=== PATIENT | male | born 1965 | race Caucasian/White ===

== ENCOUNTER → 2017-12-15 | Outpatient (CLI) | payer BC ==
--- NOTE | 2017-12-15 10:58 | NM ---
EXAMINATION TYPE: NM stress cardiolite complete DATE OF EXAM: 12/15/2017 COMPARISON: Nuclear medicine stress test April 13, 2014. HISTORY: History of tobacco use and hypercholesterolemia with family history of heart attack presents with chest pain TECHNIQUE: After the intravenous administration of 10.07 mCi Tc 99m Sestamibi - Rest images obtained 45 minutes post injection. The patient exercised using a BRIA protocol and 1 minute prior to peak exercise was injected with 25.7 mCi Tc 99m Sestamibi - Stress images obtained 10 minutes post inject ion. FINDINGS: Targeted heart rate was achieved during performance of the study. Review of stress and rest SPECT arelis ges demonstrates no distinct perfusion abnormality. Gated analysis shows satisfactory wall motion wi th an estimated left ventricular ejection fraction of 34 % diminished from the normal range. End-ralph tolic volume is 1 54 cc is also elevated from normal range. IMPRESSION: No scintigraphic evidence for reversible ischemia, correlate for possible dilated cardiomyopathy with echo and clinically.
[2017-12-15 11:24] LABS: Basophils % (A) 0 %; Eosinophils # (A) 0.1 k/uL (0-0.7); Eosinophils % (A) 1 %; HCT 47.2 % (39.0-53.0); HGB 15.5 gm/dL (13.0-17.5); Lymphocytes % (A) 26 %; MCH 29.6 pg (25.0-35.0); MCHC 32.9 g/dL (31.0-37.0); MCV 90.2 fL (80.0-100.0); Mean Platelet Volume 7.6; Monocytes # (A) 0.3 k/uL (0-1.0); Monocytes % (A) 4 %; Neutrophils # (A) 5.3 k/uL (1.3-7.7); Neutrophils % (A) 67 %; Platelet Count 237 k/uL (150-450); RBC 5.23 m/uL (4.30-5.90); RDW 12.7 % (11.5-15.5); WBC 7.9 k/uL (3.8-10.6)
[2017-12-15 11:47] LABS: Albumin 4.5 g/dL (3.5-5.0); Calcium 9.8 mg/dL (8.4-10.2); Potassium 4.9 mmol/L (3.5-5.1); Total Bilirubin 0.6 mg/dL (0.2-1.3); Total Protein 7.5 g/dL (6.3-8.2)
[2017-12-15 11:58] LABS: T4, Free (Free Thyroxine) 0.83 ng/dL (0.78-2.19)
[2017-12-15 12:12] LABS: Prostate Specific Antigen 1.64 ng/mL (0.00-4.00)
--- NOTE | 2017-12-15 12:31 | ECHOF ---
Referral Reason:R07.9 MEASUREMENTS -------- HEIGHT: 177.8 cm WEIGHT: 81.6 kg BP: RVIDd: 2.8 cm (< 3.3) IVSd: 1.2 cm (0.6 - 1.1) LVIDd: 5.8 cm (3.9 - 5.3) LVPWd: 1.2 cm (0.6 - 1.1) IVSs: 1.5 cm LVIDs: 4.6 cm LVPWs: 1.5 cm LAESV Index (A-L): 35.78 ml/m Ao Diam: 3.0 cm (2.0 - 3.7) AV Cusp: 2.1 cm (1.5 - 2.6) LA Diam: 3.2 cm (2.7 - 3.8) EPSS: 0.6 cm MV E Cody: 0.38 m/s MV DecT: 334 ms MV A Cody: 0.66 m/s MV E/A Ratio: 0.57 RAP: 5.00 mmHg RVSP: 22.02 mmHg MV EF SLOPE: 172.15 mm/s (70 - 150) MV EXCURSION: 2.27 cm (> 18.000) FINDINGS -------- Sinus rhythm. Frequent ventricular premature beats. This was a technically good study. The left ventricular size is normal. There is mild concentric left ventricular hypertrophy. Overa ll left ventricular systolic function is moderate-severely impaired with, an EF between 30 - 35 %. Lateral hypokinesis Anterior is hypokinetic The right ventricle is normal in size and function. LA is moderately dilated 34-39 ml/m2 RA appears enlarged. Aortic valve is trileaflet and is mildly thickened. Trace amount of aortic regurgitation. There is no evidence of aortic stenosis. The mitral valve leaflets are mildly thickened. There is trace to mild mitral regurgitation. Trace tricuspid regurgitation present. Right ventricular systolic pressure is normal at < 35 mmHg. There is no evidence of pulmonary hypertension. Trace/mild (physiologic) pulmonic regurgitation. The aortic root size is normal. Normal inferior vena cava with normal inspiratory collapse consistent with estimated right atrial pre ssure of 5 mmHg. There is no pericardial effusion. CONCLUSIONS -------- 1. Sinus rhythm. 2. Frequent ventricular premature beats. 3. This was a technically good study. 4. The left ventricular size is normal. 5. There is mild concentric left ventricular hypertrophy. 6. Overall left ventricular systolic function is moderate-severely impaired with, an EF between 30 - 35 %. 7. Lateral hypokinesis 8. Anterior is hypokinetic 9. LA is moderately dilated 34-39 ml/m2 10. RA appears enlarged. 11. Aortic valve is trileaflet and is mildly thickened. 12. Trace amount of aortic regurgitation. 13. The mitral valve leaflets are mildly thickened. 14. There is trace to mild mitral regurgitation. 15. Trace tricuspid regurgitation present. 16. Right ventricular systolic pressure is normal at < 35 mmHg. 17. There is no evidence of pulmonary hypertension. 18. Trace/mild (physiologic) pulmonic regurgitation. 19. The aortic root size is normal. 20. There is no pericardial effusion. FURNACE FITTER: Tarik Randle RDCS
--- NOTE | 2017-12-15 13:00 | EST ---
EXERCISE STRESS DATE OF SERVICE: 12/15/2017 AGE: 52 SEX: Male HT: 5'10" WT: 180 pounds PROTOCOL: Cardiolite Ashu STAGE: IV DURATION OF EXERCISE: 12 minutes HEART RATE REST: 82 BLOOD PRESSURE REST: 145/107 MAXIMUM HEART RATE ACHIEVED: 141 MAXIMUM BLOOD PRESSURE: 208/102 85% MPHR: 143 100% MPHR: 168 METS: 12.3 INDICATIONS: Chest pain. CLINICAL INFORMATION: Baseline EKG revealed normal sinus rhythm with voltage criteria for LVH and minor nonspecific inferolateral ST abnormality. Patient walked on standard Ashu protocol for 12 minutes, achieved a maximal heart rate of 140 beats per minute which is almost 85% of predicted maximal. Resting heart rate was 82 beats per minute. Resting blood pressure was 145/107. Peak blood pressure was 208/102. Patient therefore had hypertensive response to exercise, had isolated ventricular ectopy during exercise, but did not have any subjective symptoms of angina. He also had some ventricular couplets as well. By EKG criteria, this is considered as an inconclusive stress test given his resting EKG abnormalities. However, there were isolated PVCs and patient had hypertensive response to exercise. The quality of EKG tracings were suboptimal. FINAL IMPRESSION: 1. Good exercise capacity. 2. By EKG criteria, this is a technically inconclusive stress test because of resting EKG changes. 3. Patient had frequent ventricular ectopy including ventricular couplets and triplets in the recovery period. There were no subjective symptoms of angina. The nuclear scan results which are more pertinent, will be reported by the radiologist. However, if clinically indicated he will benefit from coronary angiography given this abnormal stress test. The findings on the stress test were discussed with Dr. Collin Doan. MMTAIL / REBECCAN: [id number] /
== END | disposition home or self-care (01) ==
LOC: RADNMMAIN 08:02
PROVIDERS: ATTEND Family Medicine
DX: I49.3 Ventricular premature depolarization (principal); Z00.00 Encounter for general adult medical examination without abnormal findings; I10 Essential (primary) hypertension; Z88.2 Allergy status to sulfonamides; Z88.5 Allergy status to narcotic agent
CPT/HCPCS: 93017; 93306; 84439; 84153; 80061; 80053; 84443; 85025; 78452; 36415; A9500

== ENCOUNTER 2018-01-07 07:59 | Day surgery (SDC) | payer BC ==
[2018-01-01 09:31] VITALS: BMI 25.8
[~2018-01-07 07:59] MED LIST: ALPRAZolam 0.25 MG TAB PO PRN; ALPRAZolam 0.5 MG TAB PO PRN; ASPIRIN 325 MG TAB PO ONE; ATORVASTATIN 80 MG TAB PO ONE; NITROGLYCERIN SL TABS 0.4 MG TAB SUBLINGUAL PRN; SODIUM CHLORIDE 0.9% 1,000 ML in EMPTY BAG 1 BAG IV ONE
[2018-01-07 08:29] VITALS: PULSE 67; RESP 20; TEMP 98
[2018-01-07] MEDS ORDERED: MIDAZOLAM 2 MG/2 ML VIAL ONE (09:21)
[2018-01-07] MEDS ORDERED: fentaNYL (PF) 50 MCG/ML 2 ML AMP ONE (09:21)
[2018-01-07] MEDS ORDERED: fentaNYL (PF) 50 MCG/ML 2 ML AMP IV ONE (09:32)
[2018-01-07] MEDS ORDERED: MIDAZOLAM 2 MG/2 ML VIAL IVP ONE (09:32)
[2018-01-07] MEDS ORDERED: LIDOCAINE 1% INJ 10MG/ML (20 ML MDV) SQ ONE (09:34)
[2018-01-07] MEDS ORDERED: IOPAMIDOL-370 125ML BTL INJ ONE (09:52)
[2018-01-07] MEDS ORDERED: RX INFO: IV CONTRAST WAS GIVEN 1 EACH MISC MISCELLANE PRN (10:05)
[2018-01-07] MEDS ORDERED: SODIUM CHLORIDE 0.9% 1,000 ML IV SCH (10:15)
--- NOTE | 2018-01-07 14:30 | CC ---
CARDIAC CATHETERIZATION REPORT INDICATION: Cardiomyopathy. PROCEDURE NOTE: After obtaining informed consent, left heart catheterization and coronary angiogram were performed via the right femoral artery using Bang catheters. The patient tolerated the procedure well without any obvious immediate complications. A femoral angiogram was performed and Angio-Seal was deployed for hemostasis. FINDINGS: HEMODYNAMICS: Left ventricular end-diastolic pressure is 12 to 14 mm. There is no significant gradient across the aortic valve. LEFT VENTRICULOGRAM: Left ventriculogram is not performed. ANGIOGRAPHIC DATA: LEFT MAIN CORONARY ARTERY: Left main coronary artery appears calcified but is free of significant stenosis. Divides into left anterior descending coronary artery and circumflex coronary artery. LAD shows mild to moderate atherosclerotic plaque in its proximal portion. Circumflex coronary artery shows mild nonobstructive disease in the proximal part. Right coronary artery is a large dominant vessel that shows moderate area of atherosclerotic plaque in its proximal portion. CONCLUSION: 1. Mild to moderate nonobstructive coronary artery disease. 2. Possible nonischemic cardiomyopathy. Patient tolerated the procedure well. Had catheter-induced left bundle branch block, which also seems rate dependent. Patient is hemodynamically stable and is free of symptoms, otherwise. Patient is stable hemodynamically. He received moderate conscious sedation for the procedure and total sedation time was 15 minutes. MMODL / IJN: [id number] /
[2018-01-07 15:12] VITALS: BP 142/83
== END 2018-01-07 15:27 | disposition home or self-care (01) ==
LOC: CATHCVL 07:59
PROVIDERS: ATTEND Internal Medicine Cardiovascular Disease
DX: I25.10 Atherosclerotic heart disease of native coronary artery without angina pectoris (principal); I44.7 Left bundle-branch block, unspecified; I42.9 Cardiomyopathy, unspecified; E78.2 Mixed hyperlipidemia; I10 Essential (primary) hypertension; F17.210 Nicotine dependence, cigarettes, uncomplicated; Z79.82 Long term (current) use of aspirin; Z79.899 Other long term (current) drug therapy; Z82.49 Family history of ischemic heart disease and other diseases of the circulatory system; Z88.5 Allergy status to narcotic agent; Z88.2 Allergy status to sulfonamides
CPT/HCPCS: 93458; C1760; C1894; C1769; J2250; J2001; J3010; Q9967

== ENCOUNTER 2018-11-09 11:15 | Observation (INO) | payer BC ==
--- NOTE | 2018-11-09 11:53 | ED ---
Chest Pain HPI - General Chief Complaint: Chest Pain Stated Complaint: lt shoulder pain, SOB Time Seen by Provider: 11/09/18 11:27 Source: patient, RN notes reviewed, old records reviewed Mode of arrival: wheelchair Limitations: no limitations - History of Present Illness Initial Comments: This is a 52-year-old male the ER for evaluation presents today for evaluation of chest pain patient states he has history of CVA unknown, did not have any evaluation at that time was just told us about 11 months ago. He has had heart catheterization in the past. Patient has high blood pressure high cholesterol is a smoker. So chest pain dizziness lightheadedness earlier in the day that is persistent. Patient also complaining of current chest pain. No recent travel history no sick contacts no fever cough or congestion MD Complaint: chest pain -: hour(s) Onset: during rest, during exertion Pain Location: left chest Pain Radiation: none Severity: moderate Severity scale (1-10): 4 Quality: tightness, heaviness Consistency: constant Improves With: nothing Worsens With: nothing Anginal Symptoms: diaphoresis, dyspnea Treatments Prior to Arrival: none - Related Data Home Medications Medication Instructions Recorded Confirmed Atorvastatin Calcium [Lipitor] 20 mg PO DAILY 01/01/18 11/09/18 Lisinopril [Zestril] 2.5 mg PO DAILY 01/01/18 11/09/18 Metoprolol Tartrate [Lopressor] 50 mg PO DAILY 01/01/18 11/09/18 Aspirin EC [Ecotrin Low Dose] 81 mg PO DAILY 11/09/18 11/09/18 Allergies Allergy/AdvReac Type Severity Reaction Status Date / Time codeine Allergy PINS AND Verified 11/09/18 11:26 NEEDLES FEELING Review of Systems ROS Statement: Those systems with pertinent positive or pertinent negative responses have been documented in the HPI. ROS Other: All systems not noted in ROS Statement are negative. EKG Findings - EKG Comments: EKG Findings:: EKG shows sinus bradycardia rate 53 NC 148 QRS 102 QTc 437 Past Medical History Past Medical History: Coronary Artery Disease (CAD), Hyperlipidemia, Hypertension, Myocardial Infarction ([place]) History of Any Multi-Drug Resistant Organisms: None Reported Past Surgical History: Hernia Repair, Orthopedic Surgery, Tonsillectomy Additional Past Surgical History / Comment(s): BILAT KNEE SCOPES. VASECTOMY. RT ROTATOR CUFF REPAIR Past Anesthesia/Blood Transfusion Reactions: No Reported Reaction Past Psychological History: No Psychological Hx Reported Smoking Status: Current every day smoker Past Alcohol Use History: Occasional Past Drug Use History: Marijuana - Past Family History Mother Family Medical History: Deep Vein Thrombosis (DVT) General Exam Limitations: no limitations Course Vital Signs 11/09/18 11:17 Temperature 97.3 F L Pulse Rate 52 L Respiratory 18 Rate Blood Pressure 149/87 O2 Sat by Pulse 98 Oximetry - Reevaluation(s) Reevaluation #1: 11/09/18 13:57 Medical records reviewed including prior heart catheterization Reevaluation #2: 11/09/18 13:57 Patient still remains a chest pain but notes chest pain like he had earlier no diaphoresis or shortness of breath currently. Complaining of more shoulder pain and back pain now Chest Pain MDM - MDM 50 female the ER for evaluation history of CAD high blood pressure high cholesterol and smoking only in with left-sided pain. Diaphoresis. Patient also had episode of shortness of breath. Symptoms are persistent but mainly just left lower pain now. We'll admit for cardiac observation Critical Care Time Critical Care Time: Yes Total Critical Care Time: 31 Disposition Clinical Impression: Chest pain Disposition: ADMITTED IP TO THIS HOSP Condition: Undetermined Instructions (If sedation given, give patient instructions): Chest Pain (ED) Is patient prescribed a controlled substance at d/c from ED?: No Referrals: Pavel Fraga MD [Primary Care Provider] - 1-2 days
--- NOTE | 2018-11-09 12:27 | XR ---
EXAMINATION TYPE: XR chest 2V DATE OF EXAM: 11/09/2018 COMPARISON: 06/17/2014 HISTORY: 53-year-old male with chest pain TECHNIQUE: PA and lateral views FINDINGS: Heart upper limits of normal in size. Mild elongation thoracic aorta. Normal variant azygos fissure. No consolidation or pleural effusion. IMPRESSION: Borderline heart size. No acute process seen.
[2018-11-09 12:33] LABS: Basophils # (A) 0.1 k/uL (0-0.2); Basophils % (A) 1 %; Eosinophils # (A) 0.2 k/uL (0-0.7); Eosinophils % (A) 2 %; HGB 14.7 gm/dL (13.0-17.5); Lymphocytes # (A) 2.2 k/uL (1.0-4.8); Lymphocytes % (A) 28 %; MCH 30.1 pg (25.0-35.0); MCHC 33.5 g/dL (31.0-37.0); MCV 89.8 fL (80.0-100.0); Mean Platelet Volume 8.4; Monocytes # (A) 0.3 k/uL (0-1.0); Monocytes % (A) 4 %; Neutrophils % (A) 63 %; Platelet Count 230 k/uL (150-450); RDW 14.1 % (11.5-15.5)
[2018-11-09 12:43] LABS: Partial Thromboplastin Time 23.2 sec (22.0-30.0); Prothrombin Time 10.3 sec (9.0-12.0)
[2018-11-09 12:46] LABS: Albumin 4.8 g/dL (3.5-5.0); Magnesium 1.8 mg/dL (1.6-2.3); Potassium 4.7 mmol/L (3.5-5.1); Total Bilirubin 0.6 mg/dL (0.2-1.3); Total Protein 7.9 g/dL (6.3-8.2)
[2018-11-09] MEDS ORDERED: ASPIRIN 81 MG PO STA (13:55)
[2018-11-09] MEDS ORDERED: NITROGLYCERIN SL TABS 0.4 MG TAB SUBLINGUAL PRN (13:55)
[2018-11-09] MEDS ORDERED: HEPARIN SODIUM,PORCINE 5,000 UNIT/ML 1 ML VIAL IV ONE (13:55)
[2018-11-09] MEDS ORDERED: HEPARIN SODIUM,PORCINE 5,000 UNIT/ML 1 ML VIAL IV PRN (13:55)
[2018-11-09] MEDS: SODIUM CHLORIDE 0.9% 1,000 ML IV SCH ×2 (14:23→23:27)
[2018-11-09] MEDS: HEPARIN SOD,PORK IN 0.45% NACL 25,000 UNIT in 0.45% NACL 1 250ML.BAG IV SCH (14:24)
--- NOTE | 2018-11-09 14:31 | CT ---
EXAMINATION TYPE: CT angio chest DATE OF EXAM: 11/09/2018 COMPARISON: Radiograph same day HISTORY: 53-year-old male Left sided shoulder pain with shortness of breath. TECHNIQUE: Contiguous axial scanning of the chest performed with IV Contrast, patient injected with 1 00 mL of Isovue 370. Coronal/sagittal reconstructions performed. CT DLP: 408.4 mGycm Automated exposure control for dose reduction was used. FINDINGS: Heart normal size without pericardial effusion. Coronary vessel calcifications are present. Aorta normal caliber with variant direct takeoff of the left vertebral artery directly from the aorti c arch. Satisfactory opacification of the pulmonary arterial system without evidence for pulmonary embolus. A few calcified right hilar lymph nodes compatible with prior granulomatous disease. No thoracic lymp hadenopathy by CT size criteria. Trace bilateral gynecomastia. Mild diffuse bronchial wall thickening. 6.6 cm bulla right apex. Mild underlying emphysema. Tiny calc ified 3 mm smaller pulmonary nodules/calcified granulomas anterior right upper lobe. The larger 4 mm right upper lobe pulmonary nodule, axial image 39 which should be reassessed at follo w-up. Bilateral dependent atelectasis. No consolidation or pleural effusion. Visualized upper abdomen shows mild thickening of the left adrenal gland without discrete nodularity. Numerous calcified granulomas within the spleen. Bones: Mild multilevel degenerative disc disease. No osseous destructive process. IMPRESSION: 1. NO PULMONARY EMBOLUS. 2. CAD AND PRIOR GRANULOMATOUS DISEASE. 3. COPD WITH MILD EMPHYSEMA BUT WITH A RIGHT APICAL BULLA MEASURING 6.6 CM. 4. SIX-MONTH FOLLOW-UP RECOMMENDED FOR A 4 MM RIGHT UPPER LOBE PULMONARY NODULE.
[2018-11-10 05:45] LABS: Mean Platelet Volume 8.3; Platelet Count 170 k/uL (150-450)
--- NOTE | 2018-11-10 07:57 | P.CRDCN ---
History of Present Illness Consult date: 11/10/18 Chief complaint: Presyncope History of present illness: This is a pleasant 53-year-old gentleman who sees Dr. Duenas in the office on regular basis with a past medical history significant for mild to moderate nonobstructive coronary artery disease based on heart catheterization was performed in January 2018, history of cardiomyopathy, hypertension, dyslipidemia, presented to the hospital after he had an episode of presyncope. He was in his usual state of health until yesterday when he was at home trying to move chair and suddenly he felt dizzy and lightheaded and about to lose his consciousness. He did not have clear-cut syncope. Did not have any symptoms of chest pain or chest discomfort or any feeling of heart racing or fluttering. Because of that he decided to come to the emergency room. In the ER and during his hospital stay, the patient has been bradycardic with a resting heart rate in the 40s and 50s. He is on metoprolol at home. The EKG showed sinus bradycardia with nonspecific changes. The cardiac enzymes were checked and came in to be unremarkable. The patient underwent a heart catheterization in January 2018 and that revealed mild to moderate nonobstructive coronary artery disease. Currently he is chest pain-free. At this point, I would decrease the dose of metoprolol, continue monitor the heart rate for additional 24 hours, obtain TSH and echocardiogram, and possible discharge in next 24 hours Past Medical History Past Medical History: Coronary Artery Disease (CAD), Hyperlipidemia, Hypertension, Myocardial Infarction ([place]) Last Myocardial Infarction Date:: 01/2018 History of Any Multi-Drug Resistant Organisms: None Reported Past Surgical History: Heart Catheterization, Hernia Repair, Orthopedic Surgery, Tonsillectomy Additional Past Surgical History / Comment(s): BILAT KNEE SCOPES. VASECTOMY. RT ROTATOR CUFF REPAIR Past Anesthesia/Blood Transfusion Reactions: No Reported Reaction Past Psychological History: No Psychological Hx Reported Smoking Status: Current every day smoker Past Alcohol Use History: Occasional Additional Past Alcohol Use History / Comment(s): SMOKES <1 PPD-SINCE 1982 Past Drug Use History: Marijuana - Past Family History Mother Family Medical History: Deep Vein Thrombosis (DVT) Medications and Allergies Home Medications Medication Instructions Recorded Confirmed Type Atorvastatin Calcium [Lipitor] 20 mg PO DAILY 01/01/18 11/09/18 History Lisinopril [Zestril] 2.5 mg PO DAILY 01/01/18 11/09/18 History Metoprolol Tartrate [Lopressor] 50 mg PO DAILY 01/01/18 11/09/18 History Aspirin EC [Ecotrin Low Dose] 81 mg PO DAILY 11/09/18 11/09/18 History Allergies Allergy/AdvReac Type Severity Reaction Status Date / Time codeine Allergy PINS AND Verified 11/09/18 11:26 NEEDLES FEELING Physical Exam Vitals: Vital Signs Temp Pulse Pulse Resp BP BP BP 11/10/18 07:00 98.1 F 61 18 139/83 11/10/18 04:00 97.6 F 48 L 18 116/63 11/09/18 23:41 98.0 F 54 L 18 122/78 11/09/18 20:00 98.1 F 55 L 18 115/62 11/09/18 15:31 97.8 F 54 L 17 162/87 11/09/18 14:30 97.6 F 53 L 14 126/85 11/09/18 14:00 47 L 16 141/91 11/09/18 13:30 52 L 14 129/88 11/09/18 13:00 50 L 16 120/83 11/09/18 12:30 51 L 15 122/80 11/09/18 12:00 14 142/89 11/09/18 11:31 49 L 11/09/18 11:17 97.3 F L 52 L 18 149/87 Pulse Ox 11/10/18 07:00 96 11/10/18 04:00 96 11/09/18 23:41 96 11/09/18 20:00 97 11/09/18 15:31 100 11/09/18 14:30 11/09/18 14:00 98 11/09/18 13:30 97 11/09/18 13:00 96 11/09/18 12:30 93 L 11/09/18 12:00 95 11/09/18 11:31 11/09/18 11:17 98 Intake and Output 11/09/18 11/10/18 11/10/18 22:59 06:59 14:59 Intake Total 1289.645 Balance 1289.645 Intake: Intake, IV Titration 1289.645 Amount Heparin Sod,Pork in 0.45% 89.645 NaCl 25,000 unit In 0.45 % NaCl 1 250ml.bag @ 11 UNITS/KG/HR 9.979 mls/hr IV .Q24H STE[facility]IE Rx#: [id number] Sodium Chloride 0.9% 1, 1200 000 ml @ 100 mls/hr IV . Q10H [facility] Rx#:[id number] Other: Voiding Method Toilet Toilet # Voids 1 - Constitutional General appearance: no acute distress - Respiratory Respiratory: bilateral: CTA - Cardiovascular Rhythm: regular Heart sounds: normal: S1, S2 Results 11/10/18 05:23 11/09/18 11:36 Cardiac Enzymes 11/09/18 11/09/18 11/09/18 Range/Units 11:36 11:36 17:27 AST 27 (17-59) U/L Troponin I <0.012 <0.012 (0.000-0.034) ng/mL 11/09/18 Range/Units 23:20 AST (17-59) U/L Troponin I <0.012 (0.000-0.034) ng/mL Coagulation 11/09/18 11/09/18 11/10/18 Range/Units 11:36 21:35 05:23 PT 10.3 (9.0-12.0) sec APTT 23.2 32.1 H 52.6 H (22.0-30.0) sec CBC 11/09/18 11/10/18 Range/Units 11:36 05:23 WBC 8.0 (3.8-10.6) k/uL RBC 4.90 (4.30-5.90) m/uL Hgb 14.7 (13.0-17.5) gm/dL Hct 44.0 (39.0-53.0) % Plt Count 230 170 (150-450) k/uL Comprehensive Metabolic Panel 11/09/18 Range/Units 11:36 Sodium 137 (137-145) mmol/L Potassium 4.7 (3.5-5.1) mmol/L Chloride 104 (98-107) mmol/L Carbon Dioxide 21 L (22-30) mmol/L BUN 17 (9-20) mg/dL Creatinine 1.15 (0.66-1.25) mg/dL Glucose 125 H (74-99) mg/dL Calcium 10.0 (8.4-10.2) mg/dL AST 27 (17-59) U/L ALT 45 (21-72) U/L Alkaline Phosphatase 78 (38-126) U/L Total Protein 7.9 (6.3-8.2) g/dL Albumin 4.8 (3.5-5.0) g/dL Current Medications Generic Name Dose Route Start Last Admin Trade Name Freq PRN Reason Stop Dose Admin Aspirin 325 mg 11/10/18 09:00 Aspirin PO DAILY [facility] Atorvastatin Calcium 20 mg 11/10/18 09:00 Lipitor PO DAILY [facility] Heparin Sodium (Porcine) 0 unit 11/09/18 13:55 11/09/18 23:23 Heparin IV 4,000 unit Q6HR PRN Administration Low PTT Protocol Sodium Chloride 1,000 mls @ 100 mls/hr 11/09/18 14:00 11/09/18 23:27 Saline 0.9% IV Not Given .Q10H [facility] Heparin Sodium/Sodium Chloride 250 mls @ 9.979 mls/hr 11/09/18 14:00 11/09/18 23:23 25,000 unit/ Sodium Chloride IV 14 units/kg/hr .Q24H [facility]PHANIE 12.701 mls/hr Titration Protocol 11 UNITS/KG/HR Lisinopril 2.5 mg 11/10/18 09:00 Zestril PO DAILY [facility] Metoprolol Tartrate 50 mg 11/10/18 09:00 Lopressor PO DAILY [facility] Nitroglycerin 0.4 mg 11/09/18 13:55 Nitrostat SUBLINGUAL Q5M PRN Chest Pain Intake and Output 11/09/18 11/10/18 11/10/18 22:59 06:59 14:59 Intake Total 1289.645 Balance 1289.645 Intake: Intake, IV Titration 1289.645 Amount Heparin Sod,Pork in 0.45% 89.645 NaCl 25,000 unit In 0.45 % NaCl 1 250ml.bag @ 11 UNITS/KG/HR 9.979 mls/hr IV .Q24H [facility] Rx#: [id number] Sodium Chloride 0.9% 1, 1200 000 ml @ 100 mls/hr IV . Q10H [facility] Rx#:[id number] Other: Voiding Method Toilet Toilet # Voids 1 11/10/18 05:23 11/09/18 11:36 Assessment and Plan Assessment: Assessment #1 symptomatic bradycardia #2 mild to moderate nonobstructive CAD #3 history of cardiomyopathy #4 hypertension #5 dyslipidemia Plan #1 decrease the dose of metoprolol #2 monitor the heart rate for additional 24 hours #3 obtain an echocardiogram was Doppler #4 check TSH #5 follow-up with the patient
[2018-11-10 08:18] LABS: Cholesterol 154 mg/dL (<200); HDL Cholesterol 42 mg/dL (40-60); LDL Cholesterol,Calculated 81 mg/dL (0-99); Triglycerides 153 mg/dL (<150)
[2018-11-10] MEDS ORDERED: METOPROLOL TARTRATE 50 MG TAB PO SCH (09:00)
[2018-11-10] MEDS ORDERED: NON-FORMULARY DRUG (Aspirin Ec 81 MG) PO SCH (09:00)
[2018-11-10] MEDS: ASPIRIN 325 MG TAB PO SCH (09:16)
[2018-11-10] MEDS: LISINOPRIL 2.5 MG TAB PO SCH (09:16)
[2018-11-10] MEDS: ATORVASTATIN 20 MG TAB PO SCH (09:16)
--- NOTE | 2018-11-10 11:48 | ECHOF ---
Referral Reason:bradycar MEASUREMENTS -------- HEIGHT: 182.9 cm WEIGHT: 90.7 kg BP: RVIDd: 3.3 cm (< 3.3) IVSd: 1.6 cm (0.6 - 1.1) LVIDd: 3.0 cm (3.9 - 5.3) LVPWd: 1.7 cm (0.6 - 1.1) IVSs: 1.8 cm LVIDs: 1.8 cm LVPWs: 2.0 cm LAESV Index (A-L): 26.06 ml/m Ao Diam: 2.6 cm (2.0 - 3.7) AV Cusp: 2.0 cm (1.5 - 2.6) LA Diam: 3.7 cm (2.7 - 3.8) MV EXCURSION: 20.130 mm (> 18.000) MV EF SLOPE: 123 mm/s (70 - 150) EPSS: 0.8 cm MV E Cody: 0.89 m/s MV DecT: 247 ms MV A Cody: 0.79 m/s MV E/A Ratio: 1.12 AR PHT: 226 ms RAP: 5.00 mmHg RVSP: 16.53 mmHg FINDINGS -------- Resting bradycardia (HR<60bpm). This was a technically good study. The left ventricular size is normal. There is moderate concentric left ventricular hypertrophy. O verall left ventricular systolic function is normal with, an EF between 55 - 60 %. The diastolic fi lling pattern is normal for the age of the patient 10.06. The right ventricle is normal in size. Normal LA size by volume 22+/-6 ml/m2. The right atrial size is normal. Interatrial and interventricular septum intact. The aortic valve is trileaflet and appears structurally normal. Trace amount of aortic regurgitatio n. The mitral valve is normal. The mitral valve leaflets are mildly thickened. There is trace mitral regurgitation. Trace tricuspid regurgitation present. Right ventricular systolic pressure is normal at < 35 mmHg. Trace/mild (physiologic) pulmonic regurgitation. The aortic root size is normal. Normal inferior vena cava with normal inspiratory collapse consistent with estimated right atrial pre ssure of 5 mmHg. The flow patterns, measured by Doppler, appear normal. There is no pericardial effusion. CONCLUSIONS -------- 1. Resting bradycardia (HR<60bpm). 2. This was a technically good study. 3. The left ventricular size is normal. 4. There is moderate concentric left ventricular hypertrophy. 5. Overall left ventricular systolic function is normal with, an EF between 55 - 60 %. 6. The diastolic filling pattern is normal for the age of the patient 10.06 7. The right ventricle is normal in size. 8. Normal LA size by volume 22+/-6 ml/m2. 9. The right atrial size is normal. 10. Interatrial and interventricular septum intact. 11. The aortic valve is trileaflet and appears structurally normal. 12. Trace amount of aortic regurgitation. 13. The mitral valve is normal. 14. The mitral valve leaflets are mildly thickened. 15. There is trace mitral regurgitation. 16. Trace tricuspid regurgitation present. 17. Right ventricular systolic pressure is normal at < 35 mmHg. 18. Trace/mild (physiologic) pulmonic regurgitation. 19. The aortic root size is normal. 20. Normal inferior vena cava with normal inspiratory collapse consistent with estimated right atrial pressure of 5 mmHg. 21. The flow patterns, measured by Doppler, appear normal. 22. There is no pericardial effusion. PREP COOK: Lesvia Berry RDCS
--- NOTE | 2018-11-10 15:24 | P.HPIM ---
History of Present Illness H&P Date: 11/10/18 Chief Complaint: Chest pain This is a 53-year-old gentleman with medical history of CAD, hyperlipidemia, hypertension, CAD- [place], heart catheterization, cardiomyopathy, ongoing nicotine dependence, marijuana use and multiple other medical issues presented to the ER with dizziness, lightheadedness, near syncope accompanied by left posterior shoulder pain which has subsided. Patient states the symptoms occurred yesterday while he was moving a stool in the shop. Denies syncope, denies incontinence of urine or bowel movement. Denies chest pain, palpitations or shortness of breath. EKG reported sinus bradycardia , heart rates in the 40s and 50s with troponins negative 3. VSS. Afebrile, normal WBC. Triglycerides 153, cholesterol 154 LDL 81, HDL 42. Creatinine 1.15, appears to be at baseline. Evaluated by cardiology. Home medication regimen consisted of metoprolol which it's has been decreased. Review of Systems ROS Statement: Those systems with pertinent positive or pertinent negative responses have been documented in the HPI. ROS Other: All systems not noted in ROS Statement are negative. Past Medical History Past Medical History: Coronary Artery Disease (CAD), Hyperlipidemia, Hypertension, Myocardial Infarction ([place]) Last Myocardial Infarction Date:: 01/2018 History of Any Multi-Drug Resistant Organisms: None Reported Past Surgical History: Heart Catheterization, Hernia Repair, Orthopedic Surgery, Tonsillectomy Additional Past Surgical History / Comment(s): BILAT KNEE SCOPES. VASECTOMY. RT ROTATOR CUFF REPAIR Past Anesthesia/Blood Transfusion Reactions: No Reported Reaction Past Psychological History: No Psychological Hx Reported Smoking Status: Current every day smoker Past Alcohol Use History: Occasional Additional Past Alcohol Use History / Comment(s): SMOKES <1 PPD-SINCE 1982 Past Drug Use History: Marijuana - Past Family History Mother Family Medical History: Deep Vein Thrombosis (DVT) Medications and Allergies Home Medications Medication Instructions Recorded Confirmed Type Atorvastatin Calcium [Lipitor] 20 mg PO DAILY 01/01/18 11/09/18 History Lisinopril [Zestril] 2.5 mg PO DAILY 01/01/18 11/09/18 History Metoprolol Tartrate [Lopressor] 50 mg PO DAILY 01/01/18 11/09/18 History Aspirin EC [Ecotrin Low Dose] 81 mg PO DAILY 11/09/18 11/09/18 History Allergies Allergy/AdvReac Type Severity Reaction Status Date / Time codeine Allergy PINS AND Verified 11/09/18 11:26 NEEDLES FEELING Physical Exam Vitals: Vital Signs Temp Pulse Pulse Resp BP BP BP 11/10/18 07:00 98.1 F 61 18 139/83 11/10/18 04:00 97.6 F 48 L 18 116/63 11/09/18 23:41 98.0 F 54 L 18 122/78 11/09/18 20:00 98.1 F 55 L 18 115/62 11/09/18 15:31 97.8 F 54 L 17 162/87 11/09/18 14:30 97.6 F 53 L 14 126/85 11/09/18 14:00 47 L 16 141/91 11/09/18 13:30 52 L 14 129/88 11/09/18 13:00 50 L 16 120/83 11/09/18 12:30 51 L 15 122/80 11/09/18 12:00 14 142/89 11/09/18 11:31 49 L 11/09/18 11:17 97.3 F L 52 L 18 149/87 Pulse Ox 11/10/18 07:00 96 11/10/18 04:00 96 11/09/18 23:41 96 11/09/18 20:00 97 11/09/18 15:31 100 11/09/18 14:30 11/09/18 14:00 98 11/09/18 13:30 97 11/09/18 13:00 96 11/09/18 12:30 93 L 11/09/18 12:00 95 11/09/18 11:31 11/09/18 11:17 98 Intake and Output 11/09/18 11/10/18 11/10/18 22:59 06:59 14:59 Intake Total 1289.645 Balance 1289.645 Intake: Intake, IV Titration 1289.645 Amount Heparin Sod,Pork in 0.45% 89.645 NaCl 25,000 unit In 0.45 % NaCl 1 250ml.bag @ 11 UNITS/KG/HR 9.979 mls/hr IV .Q24H STEPHANIE Rx#: [id number] Sodium Chloride 0.9% 1, 1200 000 ml @ 100 mls/hr IV . Q10H STEPHANIE Rx#:[id number] Other: Voiding Method Toilet Toilet # Voids 1 PHYSICAL EXAM: VITAL SIGNS: As above GENERAL: Being up in bed, no acute distress HEENT: Conjunctivae normal. eyes normal. NECK: No JVD. No thyroid enlargement. No LNs CARDIOVASCULAR: S1, S2 regular.. No murmur RESPIRATION: Breath sounds diminished in the bases. No rhonchi or crackles. No bronchial breathing. ABDOMEN: Soft, nontender . No guarding. no masses palpable. No ascites, No hepatosplenomegaly.Bowel sounds heard. LEGS: No edema. no swelling PSYCHIATRY: Alert and oriented X3, mood and affect normal. NERVOUS SYSTEM: Cranial N 2-12 grossly normal. Moves all 4 limbs. No focal deficits. Strength and sensation grossly intact.. Skin: no lesions, no rash Lymphatic system. No LN neck axilla or groin. Results CBC & Chem 7: 11/10/18 05:23 11/09/18 11:36 Labs: Abnormal Lab Results - Last 24 Hours (Table) 11/09/18 11/09/18 11/10/18 Range/Units 11:36 21:35 05:23 APTT 32.1 H (22.0-30.0) sec Carbon Dioxide 21 L (22-30) mmol/L Glucose 125 H (74-99) mg/dL Triglycerides 153 H (<150) mg/dL 11/10/18 Range/Units 05:23 APTT 52.6 H (22.0-30.0) sec Carbon Dioxide (22-30) mmol/L Glucose (74-99) mg/dL Triglycerides (<150) mg/dL Thrombosis Risk Factor Assmnt - Choose All That Apply Any of the Below Risk Factors Present?: Yes Each Factor Represents 1 point: Age 41-60 years Other Risk Factors: No Thrombosis Risk Factor Assessment Total Risk Factor Score: 1 Thrombosis Risk Factor Assessment Level: Low Risk Assessment and Plan Assessment: -Symptomatic bradycardia -CAD, history of [place], cardiac catheterization, cardiomyopathy -Hypertension -Hyperlipidemia -Ongoing nicotine dependence -Marijuana use Plan: Continue current medication regime ,monitoring and symptomatic treatment. All meds have been reviewed and resumed. Beta yen dose has been decreased as mentioned above with further overnight monitoring of heart rate. Nicotine /TSH cessation reinforced. Discharge planning in progress for tomorrow pending cardiology clearance. The impression and plan of care has been dictated as directed. : I performed a history and examination of this patient, discussed the same with the dictator. I agree with the dictator's note ,documented as a scribe. Any additional findings or plans will be noted. Time taken: 35 minutes
[2018-11-11] MEDS: SODIUM CHLORIDE 0.9% 1,000 ML IV SCH ×2 (00:09→06:47)
[2018-11-11 06:15] LABS: Basophils % (A) 1 %; Eosinophils # (A) 0.1 k/uL (0-0.7); Eosinophils % (A) 2 %; HGB 13.9 gm/dL (13.0-17.5); Lymphocytes # (A) 2.5 k/uL (1.0-4.8); Lymphocytes % (A) 41 %; MCH 30.3 pg (25.0-35.0); MCHC 33.1 g/dL (31.0-37.0); MCV 91.6 fL (80.0-100.0); Mean Platelet Volume 8.2; Monocytes # (A) 0.3 k/uL (0-1.0); Monocytes % (A) 5 %; Neutrophils # (A) 3.1 k/uL (1.3-7.7); Neutrophils % (A) 50 %; Platelet Count 176 k/uL (150-450); RBC 4.59 m/uL (4.30-5.90); RDW 12.9 % (11.5-15.5); WBC 6.2 k/uL (3.8-10.6)
[2018-11-11 06:36] LABS: Calcium 9.3 mg/dL (8.4-10.2); Potassium 4.6 mmol/L (3.5-5.1)
[2018-11-11] MEDS: HEPARIN SOD,PORK IN 0.45% NACL 25,000 UNIT in 0.45% NACL 1 250ML.BAG IV SCH (06:46)
[2018-11-11 07:48] VITALS: BP 154/81; PULSE 46; RESP 18; TEMP 97.9
--- NOTE | 2018-11-11 08:42 | P.PN ---
Subjective Progress Note Date: 11/11/18 Principal diagnosis: Bradycardia This is a 53-year-old gentleman with a past medical history significant for coronary artery disease, history of cardiomyopathy, presented to the hospital was presyncope. Yesterday we did decrease the dose of metoprolol. I'll follow-up with him today, he continues to be bradycardic with a resting heart rate in the 40s. Denies any symptoms of chest pain or chest discomfort. From the cardiovascular standpoint of view, he can be discharged home. I'm going to DC the metoprolol. He needs to follow-up with his survey coordinator, Dr. Duenas, in the next few days. Objective - Vital Signs Vital signs: Vital Signs Temp 97.9 F 11/11/18 07:00 Pulse 46 L 11/11/18 07:00 Resp 18 11/11/18 07:00 BP 154/81 11/11/18 07:00 Pulse Ox 97 11/11/18 07:00 Intake & Output 11/10/18 11/11/18 11/11/18 18:59 06:59 18:59 Intake Total 160.355 480 Balance 160.355 480 Intake: Intake, IV Titration 160.355 Amount Heparin Sod,Pork in 0.45% 160.355 NaCl 25,000 unit In 0.45 % NaCl 1 250ml.bag @ 11 UNITS/KG/HR 9.979 mls/hr IV .Q24H STEPHANIE Rx#: [id number] Oral 480 Other: Voiding Method Toilet Toilet # Voids 1 4 - Constitutional General appearance: Present: no acute distress - Respiratory Respiratory: bilateral: CTA - Cardiovascular Rhythm: regular Heart sounds: normal: S1, S2 - Labs CBC & Chem 7: 11/11/18 05:51 11/11/18 05:51 Labs: Abnormal Lab Results - Last 24 Hours (Table) 11/11/18 Range/Units 05:51 Glucose 108 H (74-99) mg/dL Assessment and Plan Assessment: Assessment #1 symptomatic bradycardia #2 mild to moderate nonobstructive CAD #3 history of cardiomyopathy #4 hypertension #5 dyslipidemia Plan #1 DC metoprolol #2 the patient can be discharged home
[2018-11-11] MEDS: LISINOPRIL 2.5 MG TAB PO SCH (08:45)
[2018-11-11] MEDS: ASPIRIN 325 MG TAB PO SCH (08:45)
[2018-11-11] MEDS: ATORVASTATIN 20 MG TAB PO SCH (08:45)
--- NOTE | 2018-11-11 16:38 | P.DS ---
Providers Date of admission: 11/09/18 13:55 Expected date of discharge: 11/11/18 Attending physician: Pavel Fraga Consults: 11/09/18 13:55 Consult Physician Urgent Consulting Provider: Mitchell Small Consult Reason/Comments: cp Do you want consulting provider notified?: Yes Primary care physician: Pavel Fraga Hospital Course: Final Diagnoses: -Symptomatic bradycardia -CAD, history of [place], cardiac catheterization, cardiomyopathy -Hypertension -Hyperlipidemia -Ongoing nicotine dependence -Marijuana use Hospital course:This is a 53-year-old gentleman with medical history of CAD, hyperlipidemia, hypertension, CAD- [place], heart catheterization, cardiomyopathy, ongoing nicotine dependence, marijuana use and multiple other medical issues presented to the ER with dizziness, lightheadedness, near syncope accompanied by left posterior shoulder pain which has subsided. Patient states the symptoms occurred yesterday while he was moving a stool in the shop. Denies syncope, denies incontinence of urine or bowel movement. Denies chest pain, palpitations or shortness of breath. EKG reported sinus bradycardia , heart rates in the 40s and 50s with troponins negative 3. VSS. Afebrile, normal WBC. Triglycerides 153, cholesterol 154 LDL 81, HDL 42. Creatinine 1.15, appears to be at baseline. Evaluated by cardiology. Home medication regimen consisted of metoprolol which it's has been decreased. Bradycardic, beta yen discontinued. Denies chest pain, palpitations or shortness of breath. Denies lightheadedness dizziness or focal deficits. Significant clinical improvement. Cleared by cardiology for discharge. Patient is being discharged home in a stable condition with guarded prognosis. Nicotine cessation reinforced- Declined nicotine patch. EXAM: GENERAL: Alert and oriented 3, no acute distress CARDIOVASCULAR: S1, S2 regular. No murmur RESPIRATION: Breath sounds diminished in the bases. No rhonchi or crackles. No wheezing ABDOMEN: Soft, nontender . No guarding. no masses palpable. Positive Bowel sounds. NERVOUS SYSTEM: No focal deficits. The impression and plan of care has been dictated as directed. : I performed a history and examination of this patient, discussed the same with the dictator. I agree with the dictator's note ,documented as a scribe. Any additional findings or plans will be noted. Time taken: 35 minutes Patient Condition at Discharge: Stable Plan - Discharge Summary Discharge Rx Participant: No New Discharge Prescriptions: Continue Lisinopril [Zestril] 2.5 mg PO DAILY Atorvastatin Calcium [Lipitor] 20 mg PO DAILY Aspirin EC [Ecotrin Low Dose] 81 mg PO DAILY Discontinued Metoprolol Tartrate [Lopressor] 50 mg PO DAILY Discharge Medication List Atorvastatin Calcium [Lipitor] 20 mg PO DAILY 01/01/18 [History] Lisinopril [Zestril] 2.5 mg PO DAILY 01/01/18 [History] Aspirin EC [Ecotrin Low Dose] 81 mg PO DAILY 11/09/18 [History] Follow up Appointment(s)/Referral(s): Pavel Fraga MD [Primary Care Provider] - 3 Days Diego Duenas MD [STAFF PHYSICIAN] - 11/24/18 2:45 pm Patient Instructions/Handouts: Chest Pain (ED) Discharge Disposition: HOME SELF-CARE
== END 2018-11-11 10:20 | disposition home or self-care (01) ==
LOC: EC 11:15 → 1SOBS 13:55
PROVIDERS: ADMIT Family Medicine; ATTEND Family Medicine
DX: R00.1 Bradycardia, unspecified (principal); J43.9 Emphysema, unspecified; R07.89 Other chest pain; I25.10 Atherosclerotic heart disease of native coronary artery without angina pectoris; I10 Essential (primary) hypertension; E78.5 Hyperlipidemia, unspecified; M25.512 Pain in left shoulder; M54.9 Dorsalgia, unspecified; I42.9 Cardiomyopathy, unspecified; F17.210 Nicotine dependence, cigarettes, uncomplicated; F12.90 Cannabis use, unspecified, uncomplicated; R91.1 Solitary pulmonary nodule; R61 Generalized hyperhidrosis; E78.00 Pure hypercholesterolemia, unspecified; Z79.82 Long term (current) use of aspirin; Z79.899 Other long term (current) drug therapy; Z88.5 Allergy status to narcotic agent; I25.2 Old myocardial infarction; Z98.52 Vasectomy status; Z83.2 Family history of diseases of the blood and blood-forming organs and certain disorders involving the immune mechanism
CPT/HCPCS: 96366 ×2; 96376 ×2; 96365; 99291; 36415; 93005; 93306; 83880; 80061; 80053; 80048; 83690; 83735; 84443; 84484; 85025 ×2; 85049; 85610; 85730 ×3; 71046; 71275; G0378 ×3; J1644 ×3; Q9967

== ENCOUNTER 2022-06-07 18:48 | Inpatient (IN) | payer BC, OTHER ==
--- NOTE | 2022-06-07 19:04 | ED ---
Chest Pain HPI - General Chief Complaint: Chest Pain Stated Complaint: Chest Pain Time Seen by Provider: 06/07/22 18:52 Source: patient, RN notes reviewed, old records reviewed Mode of arrival: wheelchair Limitations: no limitations - History of Present Illness Initial Comments: This is a 36 show male DF for evaluation of left-sided chest pain and heaviness sitting on his chest patient has not had similar symptoms somatic symptoms before although states that he is having a heart attack. Patient was outside [employer] prior to arrival the pain began it has been persistent. Patient has not had this severe pain before regards to his chest but he does have what he states is a prior history of [place] without a history of stent placement. Patient continues to state that his pain is severe and persistent with some sweatiness prior to arrival MD Complaint: chest pain -: days(s) Onset: during rest, during exertion Pain Location: substernal, left chest Pain Radiation: LUE Severity: moderate Severity scale (1-10): 7 Quality: aching, heaviness Consistency: constant Improves With: nothing Worsens With: nothing Anginal Symptoms: diaphoresis, dyspnea Other Symptoms: palpitations Treatments Prior to Arrival: none - Related Data Home Medications Medication Instructions Recorded Confirmed Atorvastatin Calcium [Lipitor] 20 mg PO DAILY 01/01/18 11/09/18 lisinopriL [Zestril] 2.5 mg PO DAILY 01/01/18 11/09/18 Aspirin EC [Ecotrin Low Dose] 81 mg PO DAILY 11/09/18 11/09/18 Allergies Allergy/AdvReac Type Severity Reaction Status Date / Time codeine Allergy PINS AND Verified 11/09/18 11:26 NEEDLES FEELING Review of Systems ROS Statement: Those systems with pertinent positive or pertinent negative responses have been documented in the HPI. ROS Other: All systems not noted in ROS Statement are negative. EKG Findings - EKG Comments: EKG Findings:: EKG shows sinus rhythm 78 CA 161 QRS 111 QTc 461 - EKG Results: EKG: interpreted by BAILEY Past Medical History Past Medical History: Coronary Artery Disease (CAD), Hyperlipidemia, Hypertension, Myocardial Infarction ([place]) Last Myocardial Infarction Date:: 01/2018 History of Any Multi-Drug Resistant Organisms: None Reported Past Surgical History: Heart Catheterization, Hernia Repair, Orthopedic Surgery, Tonsillectomy Additional Past Surgical History / Comment(s): BILAT KNEE SCOPES. VASECTOMY. RT ROTATOR CUFF REPAIR Past Anesthesia/Blood Transfusion Reactions: No Reported Reaction Past Psychological History: No Psychological Hx Reported Past Alcohol Use History: Occasional Past Drug Use History: Marijuana - Past Family History Mother Family Medical History: Deep Vein Thrombosis (DVT) General Exam - General Exam Comments Initial Comments: Mildly clammy on exam Limitations: no limitations General appearance: alert, in no apparent distress, anxious Head exam: Present: atraumatic, normocephalic, normal inspection Eye exam: Present: normal appearance, PERRL, EOMI. Absent: scleral icterus, conjunctival injection, periorbital swelling ENT exam: Present: normal exam, mucous membranes moist Neck exam: Present: normal inspection. Absent: tenderness, meningismus, lymphadenopathy Respiratory exam: Present: normal lung sounds bilaterally. Absent: respiratory distress, wheezes, rales, rhonchi, stridor Cardiovascular Exam: Present: regular rate, normal rhythm, normal heart sounds. Absent: systolic murmur, diastolic murmur, rubs, gallop, clicks GI/Abdominal exam: Present: soft, normal bowel sounds. Absent: distended, tenderness, guarding, rebound, rigid Extremities exam: Present: normal inspection, full ROM, normal capillary refill. Absent: tenderness, pedal edema, joint swelling, calf tenderness Back exam: Present: normal inspection Neurological exam: Present: alert, oriented X3, CN II-XII intact Psychiatric exam: Present: normal affect, normal mood Skin exam: Present: warm, dry, intact, normal color. Absent: rash Course Vital Signs 06/07/22 06/07/22 06/07/22 18:49 19:21 20:00 Temperature 98 F Pulse Rate 59 L 71 73 Respiratory 20 22 19 Rate Blood Pressure 106/67 103/63 109/82 O2 Sat by Pulse 95 95 Oximetry - Reevaluation(s) Reevaluation #1: 06/07/22 20:27 Medical record is reviewed Reevaluation #2: 06/07/22 20:27 Patient has persistent chest pain here in the ER Reevaluation #3: 06/07/22 20:31 Patient informed results questions have been answered Reevaluation #4: 06/07/22 20:28 Was pt. sent in by a medical professional or institution? @ -no Did you speak to anyone other than the patient for history? @ -Epatient son at bedside Did you review nursing and triage notes? @ -agree Were old charts reviewed? @ -prior admissions and ER evaluaions are reviewed Differential Diagnosis? @ -CpP EKG interpreted by me (3pts min.)? @ -yes x 3 X-rays interpreted by me (1pt min.)? @ -yes CT interpreted by me (1pt min.)? @ -no U/S interpreted by me (1pt. min.)? @ -no What testing was considered but not performed? (CT, X-rays, U/S, labs)? Why? @ -no What meds were considered but not given? Why? @ -no patient with no current complaints Did you discuss the management of the patient with other professionals? @ -no Did you reconcile home meds? @ -no Was smoking cessation discussed for >3mins.? @ -yes Was critical care preformed (if so, how long)? @ -yes Were there social determinants of health that impacted care today? How? (Homelessness, low income, unemployed, alcoholism, drug addiction, transportation, low edu. Level, literacy, decrease access to med. care, snf, rehab)? @ -no Was there de-escalation of care discussed even if they declined? (Discuss DNR or withdrawal of care, Hospice)? @ -no What co-morbidities impacted this encounter? (DM, HTN, Smoking, COPD, CAD, Cancer, CVA, Hep., AIDS, mental health diagnosis, sleep apnea, morbid obesity)? @ -none Was patient admitted / discharged? @ -admit Undiagnosed new problem with uncertain prognosis? @ -CP,NSTEMI Drug Therapy requiring intensive monitoring for toxicity (Heparin, Nitro, Insulin, Cardizem)? @ -yes Were any procedures done? @ -no Diagnosis/symptom? @ -NSTEMI,ACS Acute, or Chronic, or Acute on Chronic? @ -acute Uncomplicated (without systemic symptoms) or Complicated (systemic symptoms)? @ -uncompicated Side effects of treatment? @ -none Exacerbation, Progression, or Severe Exacerbation] @ -no Poses a threat to life or bodily function? @ -yes Reevaluation #5: 06/07/22 20:28 Differential Chest Pain: Stable Angina, Unstable Angina, STEMI, NSTEMI Aortic Dissection, Pneumothorax, Musculoskeletal, Esophageal Spasm GERD, Cholecystitis, Pancreatitis, Zoster, this is not meant to be an all-inclusive list. - Consultations Consultation #1: Spoke with cardiology regarding patient will see patient in the emergency department Consultation #2: spoke with home service consultant [facility] who will admit this patient Chest Pain MDM - MDM 56 male to the emergency department for evaluation with history of [place] and CAD coming in for classic chest pain. Patient placed on heparin with multiple troponins pending and will be admitted for cardiology observation evaluation and treatment, they did see patient in the ER due to abnormal EKG Critical Care Time Critical Care Time: Yes Total Critical Care Time: 31 Disposition Clinical Impression: Chest pain, Acute non-ST elevation myocardial infarction (NSTEMI), Unstable angina pectoris Disposition: ADMITTED IP TO THIS HOSP Condition: Serious Referrals: None,Stated [REFERRING] - 1-2 days Time of Disposition: 21:00
--- NOTE | 2022-06-07 19:11 | XR ---
EXAMINATION TYPE: XR chest 1V portable DATE OF EXAM: 06/07/2022 7:05 PM COMPARISON: Chest radiographs from 11/09/2018 TECHNIQUE: XR chest 1V portable Frontal view of the chest. CLINICAL INDICATION:Male, 56 years old with history of chest pain; FINDINGS: Lungs/Pleura: There is no evidence of pleural effusion, focal consolidation, or pneumothorax. Pulmonary vascularity: Unremarkable. Heart/mediastinum: Cardiomediastinal silhouette is unremarkable. Musculoskeletal: No acute osseous pathology. IMPRESSION: No acute cardiopulmonary disease/process. No significant change from prior.
[2022-06-07 19:12] LABS: Basophils # (A) 0.1 k/uL (0-0.2); Basophils % (A) 1 %; Eosinophils # (A) 0.1 k/uL (0-0.7); Eosinophils % (A) 2 %; HCT 47.6 % (39.0-53.0); HGB 16.2 gm/dL (13.0-17.5); Lymphocytes # (A) 2.1 k/uL (1.0-4.8); Lymphocytes % (A) 26 %; MCH 30.6 pg (25.0-35.0); MCV 90.1 fL (80.0-100.0); Mean Platelet Volume 9.8; Monocytes # (A) 0.4 k/uL (0-1.0); Monocytes % (A) 5 %; Neutrophils # (A) 5.3 k/uL (1.3-7.7); Neutrophils % (A) 65 %; Platelet Count 209 k/uL (150-450); RBC 5.28 m/uL (4.30-5.90); RDW 12.7 % (11.5-15.5); WBC 8.2 k/uL (3.8-10.6)
[2022-06-07 19:24] LABS: Albumin 4.6 g/dL (3.5-5.0); Calcium 9.7 mg/dL (8.4-10.2); Potassium 4.5 mmol/L (3.5-5.1); Total Bilirubin 0.6 mg/dL (0.2-1.3)
[2022-06-07 19:30] LABS: INR 0.9 (<1.2); Partial Thromboplastin Time 22.2 sec (22.0-30.0)
[2022-06-07] MEDS ORDERED: HEPARIN SODIUM 1,000 UN/ML (10ML VL) IV ONE (19:44)
[2022-06-07] MEDS ORDERED: HEPARIN SODIUM 1,000 UN/ML (10ML VL) IV PRN (19:44)
[2022-06-07] MEDS ORDERED: MORPHINE SULFATE 4 MG/ML SYRINGE IVP STA (20:16)
[2022-06-07] MEDS ORDERED: SODIUM CHLORIDE 0.9% 1,000 ML IV STA (20:16)
[2022-06-07] MEDS ORDERED: SODIUM CHLORIDE 0.9% 500 ML 500 ML IV STA (20:16)
[2022-06-07] MEDS ORDERED: MORPHINE SULFATE 4 MG/ML SYRINGE IVP PRN (20:16)
[2022-06-07] MEDS: HEPARIN SOD,PORK IN 0.45% NACL 25,000 UNIT in 0.45% NACL 1 250ML.BAG IV SCH (20:18)
--- NOTE | 2022-06-07 20:20 | P.CRDCN ---
History of Present Illness History of present illness: This is Dr. Boone dictating a consult on this patient The patient was interviewed and examined IMPRESSION / ASSESSMENT: Chest discomfort that started about 2 hours back. Left precordial, after chopping wood Tenderness in the left pectoral area Abnormal EKG with ST depressions in the inferior leads and lateral precordial leads with elevation in aVR, but the EKG abnormalities are identical to the EKGs in 2019 RVOT PVCs, septal Hypertension, recently started on lisinopril Current smoker Known nonobstructive [id number] disease in the LAD by coronary angiography in January 2018 Creatinine 1.7 PLAN: IV heparin, statins, aspirin and Nitropaste Morphine for pain 2-D echo and Doppler study IV fluid bolus We'll await the second troponin which is being sent in 1 hour HPI Patient presented with left pectoral pain. He is in severe pain but also has tenderness in the left pectoral region in the muscle and the ribs He feels a bit nauseous and sweaty He was chopping wood and the discomfort started after that His EKG shows sinus mechanism normal NM narrow QRS with abnormal ST segments with ST depression 0.5 mm in the inferior leads and a similar [address] depression in V4 through V6 and a 1 mm elevation in aVR. 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 I'm repeating another troponin one ROS: No fever chills or rigors, no cough, phlegm or expectoration, no nausea, vomiting or diarrhea, no hematuria, dysuria, no musculoskeletal complaints, no strokes or seizures, no skin lesions. EXAMINATION: Blood pressure normal Heart sounds are normal Breath sounds are clear Chest wall tenderness noted on the left side left pectoral Patient is uncomfortable and is in pain REVIEW OF LABS, ECG & MEDICAL DATA Creatinine 1.7 First troponin normal Hemoglobin 16 Electrolytes normal BUN 22 and creatinine 1.7 Past Medical History Past Medical History: Coronary Artery Disease (CAD), Hyperlipidemia, Hypertension, Myocardial Infarction ([place]) Last Myocardial Infarction Date:: 01/2018 History of Any Multi-Drug Resistant Organisms: None Reported Past Surgical History: Heart Catheterization, Hernia Repair, Orthopedic Surgery, Tonsillectomy Additional Past Surgical History / Comment(s): BILAT KNEE SCOPES. VASECTOMY. RT ROTATOR CUFF REPAIR Past Anesthesia/Blood Transfusion Reactions: No Reported Reaction Past Psychological History: No Psychological Hx Reported Past Alcohol Use History: Occasional Past Drug Use History: Marijuana - Past Family History Mother Family Medical History: Deep Vein Thrombosis (DVT) Medications and Allergies Home Medications Medication Instructions Recorded Confirmed Type Atorvastatin Calcium [Lipitor] 20 mg PO DAILY 01/01/18 11/09/18 History lisinopriL [Zestril] 2.5 mg PO DAILY 01/01/18 11/09/18 History Aspirin EC [Ecotrin Low Dose] 81 mg PO DAILY 11/09/18 11/09/18 History Allergies Allergy/AdvReac Type Severity Reaction Status Date / Time codeine Allergy PINS AND Verified 11/09/18 11:26 NEEDLES FEELING Physical Exam Vitals: Vital Signs Temp Pulse Resp BP Pulse Ox 06/07/22 20:00 73 19 109/82 06/07/22 19:21 71 22 103/63 95 06/07/22 18:49 98 F 59 L 20 106/67 95 Intake and Output 06/07/22 06/07/22 06/07/22 06:59 14:59 22:59 Other: Weight 83.915 kg Results 06/07/22 19:02 06/07/22 19:02 Cardiac Enzymes 06/07/22 06/07/22 Range/Units 19:02 19:02 AST 31 (17-59) U/L Troponin I 0.022 (0.000-0.034) ng/mL Coagulation 06/07/22 Range/Units 19:02 PT 10.0 (9.0-12.0) sec APTT 22.2 (22.0-30.0) sec CBC 06/07/22 Range/Units 19:02 WBC 8.2 (3.8-10.6) k/uL RBC 5.28 (4.30-5.90) m/uL Hgb 16.2 (13.0-17.5) gm/dL Hct 47.6 (39.0-53.0) % Plt Count 209 (150-450) k/uL Comprehensive Metabolic Panel 06/07/22 Range/Units 19:02 Sodium 138 (137-145) mmol/L Potassium 4.5 (3.5-5.1) mmol/L Chloride 104 (98-107) mmol/L Carbon Dioxide 21 L (22-30) mmol/L BUN 22 H (9-20) mg/dL Creatinine 1.70 H (0.66-1.25) mg/dL Glucose 149 H (74-99) mg/dL Calcium 9.7 (8.4-10.2) mg/dL AST 31 (17-59) U/L ALT 48 (4-49) U/L Alkaline Phosphatase 80 (38-126) U/L Total Protein 8.0 (6.3-8.2) g/dL Albumin 4.6 (3.5-5.0) g/dL Current Medications Generic Name Dose Route Start Last Admin Trade Name Freq PRN Reason Stop Dose Admin Heparin Sodium (Porcine) 0 unit 06/07/22 19:44 Heparin Sodium 1,000 Un/Ml (10ml Vl) IV PER PROTOCOL PRN Low PTT Protocol Heparin Sodium/Sodium Chloride 250 mls @ 10.07 mls/hr 06/07/22 19:45 25,000 unit/ Sodium Chloride IV .Q24H [facility] Protocol 12 UNITS/KG/HR Sodium Chloride 1,000 mls @ 130 mls/hr 06/07/22 20:30 Saline 0.9% IV .Q7H42M STEPHANIE Sodium Chloride 1,000 mls @ 999 mls/hr 06/07/22 20:16 Saline 0.9% IV 06/07/22 21:16 .Q1H1M STA Sodium Chloride 500 mls @ 999 mls/hr 06/07/22 20:16 Saline 0.9% IV 06/07/22 20:46 .Q31M STA Morphine Sulfate 4 mg 06/07/22 20:16 Morphine Sulfate 4 Mg/Ml Syringe IVP Q4HR PRN Pain Intake and Output 06/07/22 06/07/22 06/07/22 06:59 14:59 22:59 Other: Weight 83.915 kg Patient Weight 06/08/22 06:59 Weight 83.915 kg 06/07/22 19:02 06/07/22 19:02
[2022-06-07] MEDS ORDERED: ASPIRIN 81 MG PO STA (20:38)
[2022-06-07] MEDS ORDERED: ONDANSETRON 4 MG/2 ML VIAL IVP PRN (20:42)
[2022-06-07] MEDS ORDERED: ONDANSETRON 4 MG/2 ML VIAL IVP STA (20:42)
[2022-06-07] MEDS: METOPROLOL TARTRATE 25 MG TAB PO SCH ×2 (21:53→21:54)
[2022-06-08] MEDS: SODIUM CHLORIDE 0.9% 1,000 ML IV SCH ×4 (01:37→21:09)
[2022-06-08 05:43] LABS: Prothrombin Time 10.4 sec (9.0-12.0)
[2022-06-08] MEDS: HEPARIN SOD,PORK IN 0.45% NACL 25,000 UNIT in 0.45% NACL 1 250ML.BAG IV SCH (05:57)
[2022-06-08] MEDS: FAMOTIDINE 20 MG/2 ML VIAL IV SCH ×2 (08:18→19:39)
[2022-06-08] MEDS: ATORVASTATIN 80 MG TAB PO SCH (08:18)
[2022-06-08] MEDS: METOPROLOL TARTRATE 25 MG TAB PO SCH (08:19)
--- NOTE | 2022-06-08 08:57 | P.HPIM ---
History of Present Illness This is a pleasant 56 years old male with past medical history of Coronary Artery Disease (CAD), Hyperlipidemia, Hypertension Patient presents because of chest pain started yesterday about 8-9/10 in severity but now is completely resolved as 0/10, his pain is in the left chest and radiate locally associated with some sweating, feathered like something sitting on his chest, little dyspnea yesterday but none today, no coughing. Patient has some nausea yesterday but no vomiting no abdominal pain or diarrhea. No more nausea today. No urinary complaints, no headache dizziness weakness or numbness He smokes half pack per day and he was counseled to quit and he agrees but he declines nicotine patch. No illicit drugs. Occasional alcohol Vitals are stable, blood pressure is low normal CBC is unremarkable. INR is within normal limits. Creatinine elevated 1.7 compared to baseline of 1.1. Serial troponin are negative 0.02 and 0.01 ProBNP is 895. EKG showing normal sinus rhythm at 78 with PVCs, QTC is 461, no significant ST-T changes. P pulmonale Chest x-ray: No acute process. , Aspirin 325 mg daily. Lipitor 80 mg. Also normal saline at 1 30 mL/h Review of Systems Review of systems CONSTITUTIONAL: No fever, no malaise, no fatigue. HEENT: No recent visual problems or hearing problems. Denied any sore throat. CARDIOVASCULAR: No orthopnea, PND, no palpitations, no syncope. PULMONARY: No shortness of breath, no cough, no hemoptysis. GASTROINTESTINAL: No diarrhea, no nausea, no vomiting, no abdominal pain. Normoactive bowel sounds. NEUROLOGICAL: No headaches, no weakness, no numbness. HEMATOLOGICAL: Denies any bleeding or petechiae. GENITOURINARY: Denies any burning micturition, frequency, or urgency. MUSCULOSKELETAL/RHEUMATOLOGICAL: Denies any joint pain, swelling, or any muscle pain. ENDOCRINE: Denies any polyuria or polydipsia. Past Medical History Past Medical History: Coronary Artery Disease (CAD), Hyperlipidemia, Hypertension, Myocardial Infarction ([place]) Last Myocardial Infarction Date:: 01/2018 History of Any Multi-Drug Resistant Organisms: None Reported Past Surgical History: Heart Catheterization, Hernia Repair, Orthopedic Surgery, Tonsillectomy Additional Past Surgical History / Comment(s): BILAT KNEE SCOPES. VASECTOMY. RT ROTATOR CUFF REPAIR Past Anesthesia/Blood Transfusion Reactions: No Reported Reaction Past Psychological History: No Psychological Hx Reported Past Alcohol Use History: Occasional Past Drug Use History: Marijuana - Past Family History Mother Family Medical History: Deep Vein Thrombosis (DVT) Father Family Medical History: Myocardial Infarction ([place]) Additional Family Medical History / Comment(s): of [place] Sister(s) Family Medical History: Myocardial Infarction ([place]) Additional Family Medical History / Comment(s): of [place] at 52 years old. Medications and Allergies Home Medications Medication Instructions Recorded Confirmed Type lisinopriL [Zestril] 10 mg PO DAILY 06/07/22 06/07/22 History Allergies Allergy/AdvReac Type Severity Reaction Status Date / Time codeine Allergy PINS AND Verified 06/07/22 20:28 NEEDLES FEELING metoprolol AdvReac Unknown Verified 06/08/22 08:36 Physical Exam Vitals: Vital Signs Temp Pulse Resp BP Pulse Ox 06/08/22 02:00 76 18 105/71 99 06/08/22 01:00 75 18 106/85 96 06/08/22 00:00 81 21 118/77 98 06/07/22 23:00 77 20 115/86 95 06/07/22 22:10 82 21 119/83 96 06/07/22 22:00 86 16 129/73 97 06/07/22 21:45 90 17 127/85 94 L 06/07/22 21:30 85 15 124/77 94 L 06/07/22 21:15 85 20 121/78 94 L 06/07/22 21:00 82 23 91/81 93 L 06/07/22 20:48 75 21 91/81 97 06/07/22 20:00 73 19 109/82 06/07/22 19:21 71 22 103/63 95 06/07/22 18:49 98 F 59 L 20 106/67 95 Intake and Output 06/07/22 06/07/22 06/08/22 14:59 22:59 06:59 Intake Total 97.176 Balance 97.176 Intake: Intake, IV Titration 97.176 Amount Heparin Sod,Pork in 0.45% 97.176 NaCl 25,000 unit In 0.45 % NaCl 1 250ml.bag @ 12 UNITS/KG/HR 10.07 mls/hr IV .Q24H [facility] Rx#: [id number] Other: Weight 83.915 kg GENERAL: The patient is alert and oriented x3, not in any acute distress. Well developed, well nourished. HEENT: Pupils are round and equally reacting to light. EOMI. No scleral icterus. No conjunctival pallor. Normocephalic, atraumatic. No pharyngeal erythema. No thyromegaly. CARDIOVASCULAR: S1 and S2 present. No murmurs, rubs, or gallops. PULMONARY: Chest is clear to auscultation, no wheezing or crackles. ABDOMEN: Soft, nontender, nondistended, normoactive bowel sounds. No palpable organomegaly. MUSCULOSKELETAL: No joint swelling or deformity. EXTREMITIES: No cyanosis, clubbing, or pedal edema. NEUROLOGICAL: Gross neurological examination did not reveal any focal deficits. SKIN: No rashes. no petechiae. Results CBC & Chem 7: 06/07/22 19:02 06/07/22 19:02 Labs: Abnormal Lab Results - Last 24 Hours (Table) 06/07/22 06/08/22 Range/Units 19:02 05:28 APTT 31.0 H (22.0-30.0) sec Carbon Dioxide 21 L (22-30) mmol/L BUN 22 H (9-20) mg/dL Creatinine 1.70 H (0.66-1.25) mg/dL Glucose 149 H (74-99) mg/dL Assessment and Plan Assessment: Chest pain, rule out other causes, musculoskeletal versus unstable angina Acute kidney injury on chronic kidney disease Nicotine dependence Hypertension Hyperlipidemia History of coronary artery disease Plan: Continue with aspirin Continue with heparin drip Patient declines nicotine patch Cardiology consult LISINOPRIL is on hold Continue with IV fluid, we will order the right to 100 mL per hour Monitor input and output and creatinine (if worsening creatinine level we will recommend nephrology consult) Labs and medication were reviewed.. Continue same treatment. Continue with symptomatic treatment. Resume home medication. Monitor labs and vitals. DVT and GI prophylaxis. Further recommendations as per clinical course of the patient DVT prophylaxis: heparin GI Prophylaxis: Pepcid PT/OT: Pending Prognosis is guarded
[2022-06-08] MEDS ORDERED: ASPIRIN 325 MG TAB PO SCH (09:00)
[2022-06-08 09:06] LABS: Basophils % (A) 1 %; Eosinophils # (A) 0.1 k/uL (0-0.7); Eosinophils % (A) 1 %; HCT 41.9 % (39.0-53.0); Lymphocytes # (A) 3.1 k/uL (1.0-4.8); Lymphocytes % (A) 41 %; MCHC 33.3 g/dL (31.0-37.0); MCV 90.1 fL (80.0-100.0); Mean Platelet Volume 10.1; Monocytes # (A) 0.3 k/uL (0-1.0); Monocytes % (A) 4 %; Neutrophils # (A) 3.8 k/uL (1.3-7.7); Neutrophils % (A) 51 %; Platelet Count 152 k/uL (150-450); RBC 4.65 m/uL (4.30-5.90); RDW 13.2 % (11.5-15.5); WBC 7.5 k/uL (3.8-10.6)
[2022-06-08 09:25] LABS: African American GFR (CKD) 79 (>60 ml/min/1.73 sqM); Anion Gap 8 mmol/L; Blood Urea Nitrogen 18 mg/dL (9-20); Calcium 8.1 mg/dL (8.4-10.2); Carbon Dioxide 20 mmol/L (22-30); Chloride 108 mmol/L (98-107); Glucose 166 mg/dL (74-99); Non-African American GFR(CKD) 69 (>60 ml/min/1.73 sqM); Potassium 4.2 mmol/L (3.5-5.1); Sodium 136 mmol/L (137-145)
--- NOTE | 2022-06-08 11:27 | P.PN ---
Subjective Progress Note Date: 06/08/22 History of present illness: Patient presented with left pectoral pain. He is in severe pain but also has tenderness in the left pectoral region in the muscle and the ribs He feels a bit nauseous and sweaty He was chopping wood and the discomfort started after that His EKG shows sinus mechanism normal MT narrow QRS with abnormal ST segments with ST depression 0.5 mm in the inferior leads and a similar [address] depression in V4 through V6 and a 1 mm elevation in aVR. 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 06/08 Patient is seen today in follow-up. He is having frequent PVCs, heart rate in the 70s, blood pressure 113/71. Patient is refusing to take metoprolol as he had a drop in his heart rate which she states was 8 and 2017 when his dose was increased at that time. We will discontinue metoprolol. Patient denies any chest pain or shortness of breath. He has been ambulatory. Renal function is improved with BUN of 18 and creatinine 1.18. Physical examination: Gen: This is a 56-year-old male. Patient is resting in bed and appears to be comfortable and in no acute distress. VS: reviewed HEENT: Head is atraumatic, normocephalic. Pupils equal, round. Sclerae is anicteric. NECK: Supple. No JVD. . LUNGS: Clear to auscultation. No wheezes or rhonchi. No intercostal retractions. HEART: Regular rate and rhythm. No murmur. Chest wall tenderness left pectoral ABDOMEN: Soft No tenderness. EXTREMITIES: No pedal edema. No calf tenderness. NEUROLOGICAL: Patient is awake, alert and oriented x3. Assessment: Chest discomfort that started about 2 hours back. Left precordial, after chopping wood Tenderness in the left pectoral area Abnormal EKG with ST depressions in the inferior leads and lateral precordial leads with elevation in aVR, but the EKG abnormalities are identical to the EKGs in 2019 RVOT PVCs, septal Hypertension, recently started on lisinopril Current smoker Known nonobstructive [id number]-[id number] disease in the LAD by coronary angiography in January 2018 Creatinine 1.7 Plan: Discontinue IV heparin Continue patient on aspirin 81 mg daily, Lipitor 80 mg daily, discontinue me toprolol Obtain 2-D echo and Doppler study Obtain Lexiscan stress test tomorrow Continue monitoring overnight. Further recommendations as patient progresses. Nurse practitioner note has been reviewed, I agree with documented findings and plan of care. Patient was seen and examined. Objective - Vital Signs Vital signs: Vital Signs Temp 97.5 F L 06/08/22 08:29 Pulse 72 06/08/22 08:29 Resp 16 06/08/22 08:29 BP 113/71 06/08/22 08:29 Pulse Ox 96 06/08/22 08:29 FiO2 Intake & Output 06/07/22 06/08/22 06/08/22 18:59 06:59 18:59 Intake Total 97.176 Balance 97.176 Weight 83.915 kg 83.915 kg Intake: Intake, IV Titration 97.176 Amount Heparin Sod,Pork in 0.45% 97.176 NaCl 25,000 unit In 0.45 % NaCl 1 250ml.bag @ 12 UNITS/KG/HR 10.07 mls/hr IV .Q24H [facility] Rx#: [id number] Other: Voiding Method Toilet - Labs CBC & Chem 7: 06/08/22 08:37 06/08/22 08:37 Labs: Abnormal Lab Results - Last 24 Hours (Table) 06/07/22 06/08/22 06/08/22 Range/Units 19:02 05:28 08:37 APTT 31.0 H (22.0-30.0) sec Sodium 136 L (137-145) mmol/L Chloride 108 H (98-107) mmol/L Carbon Dioxide 21 L 20 L (22-30) mmol/L BUN 22 H (9-20) mg/dL Creatinine 1.70 H (0.66-1.25) mg/dL Glucose 149 H 166 H (74-99) mg/dL Calcium 8.1 L (8.4-10.2) mg/dL
[2022-06-08 16:36] LABS: Chol/HDL Ratio 5.68 Ratio; LDL Cholesterol,Calculated 127.5 mg/dL (0.0-131.0)
[2022-06-08 16:57] LABS: Glucose,Whole Blood 177 mg/dL (70-110)
[2022-06-08 20:06] LABS: Glucose,Whole Blood 171 mg/dL (70-110)
[2022-06-09] MEDS: SODIUM CHLORIDE 0.9% 1,000 ML IV SCH ×4 (04:41→19:58)
[2022-06-09 05:59] LABS: Glucose,Whole Blood 166 mg/dL (70-110)
[2022-06-09] MEDS ORDERED: CAFFEINE CITRATE 60 MG/3 ML VIAL IV PRN (06:00)
[2022-06-09] MEDS ORDERED: REGADENOSON 0.4 MG/5 ML SYRINGE IV PRN (06:00)
[2022-06-09] MEDS ORDERED: AMINOPHYLLINE 500 MG/20 ML VIAL IV PRN (06:00)
[2022-06-09] MEDS ORDERED: HEPARIN SODIUM,PORCINE 2,500 UNIT in SODIUM CHLORIDE 0.9% 250 ML IRRIGATION PRN (07:00)
[2022-06-09] MEDS ORDERED: HEPARIN SODIUM,PORCINE 10,000 UNIT in SODIUM CHLORIDE 0.9% 1,000 ML IRRIGATION PRN (07:00)
[2022-06-09] MEDS: ATORVASTATIN 80 MG TAB PO SCH (08:01)
[2022-06-09] MEDS: FAMOTIDINE 20 MG/2 ML VIAL IV SCH ×2 (08:01→19:57)
[2022-06-09] MEDS: ASPIRIN 81 MG PO SCH (08:01)
[2022-06-09 08:20] LABS: Basophils # (A) 0.1 k/uL (0-0.2); Basophils % (A) 1 %; Eosinophils # (A) 0.1 k/uL (0-0.7); Eosinophils % (A) 1 %; HCT 44.4 % (39.0-53.0); HGB 15.4 gm/dL (13.0-17.5); Lymphocytes # (A) 2.4 k/uL (1.0-4.8); Lymphocytes % (A) 28 %; MCH 30.8 pg (25.0-35.0); MCHC 34.7 g/dL (31.0-37.0); Mean Platelet Volume 9.5; Monocytes # (A) 0.4 k/uL (0-1.0); Monocytes % (A) 4 %; Neutrophils # (A) 5.3 k/uL (1.3-7.7); Neutrophils % (A) 63 %; Platelet Count 171 k/uL (150-450); RBC 4.99 m/uL (4.30-5.90); RDW 13.1 % (11.5-15.5); WBC 8.4 k/uL (3.8-10.6)
[2022-06-09] MEDS ORDERED: ALPRAZolam 0.25 MG TAB PO PRN (08:28)
[2022-06-09] MEDS ORDERED: ASPIRIN 325 MG TAB PO STA (08:28)
[2022-06-09] MEDS ORDERED: NITROGLYCERIN SL TABS 0.4 MG TAB SUBLINGUAL PRN (08:28)
[2022-06-09] MEDS ORDERED: ALPRAZolam 0.5 MG TAB PO PRN (08:28)
[2022-06-09] MEDS ORDERED: ATORVASTATIN 80 MG TAB PO STA (08:28)
[2022-06-09] MEDS ORDERED: SODIUM CHLORIDE 0.9% 1,000 ML in EMPTY BAG 1 BAG IV SCH (08:30)
[2022-06-09 08:40] LABS: African American GFR (CKD) >90 (>60 ml/min/1.73 sqM); Anion Gap 8 mmol/L; Blood Urea Nitrogen 17 mg/dL (9-20); Calcium 8.7 mg/dL (8.4-10.2); Carbon Dioxide 21 mmol/L (22-30); Chloride 109 mmol/L (98-107); Glucose 147 mg/dL (74-99); Non-African American GFR(CKD) 83 (>60 ml/min/1.73 sqM); Potassium 4.6 mmol/L (3.5-5.1); Sodium 138 mmol/L (137-145)
[2022-06-09] MEDS ORDERED: ASPIRIN 81 MG PO STA (08:52)
[2022-06-09] MEDS ORDERED: fentaNYL (PF) 50 MCG/ML 2 ML AMP ONE (10:56)
[2022-06-09] MEDS ORDERED: VERAPAMIL 2.5 MG/ML 2 ML AMP ONE (10:56)
--- NOTE | 2022-06-09 10:57 | CA ---
Transthoracic Echo Report Name: Collin Enamorado Age: 56 Gender: M : 1965 Exam Date: 06/09/2022 07:41 Exam Location: [facility] Ht (in): 70 Wt (lb): 185 Ordering Physician: Maisha Ferro Attending/Referring Phys: [id number], Kasie [employer]type Servicer Sandy Klein, RUST Procedure CPT: Indications: LVF Cardiac Hx: hx of SD Technical Quality: Good Contrast 1: Total Dose (mL): Contrast 2: Total Dose (mL): MEASUREMENTS (Male / Female) Normal Values 2D ECHO LV Diastolic Diameter PLAX 5.8 cm 4.2 - 5.9 / 3.9 - 5.3 cm LV Systolic Diameter PLAX 5.3 cm IVS Diastolic Thickness 1.3 cm 0.6 - 1.0 / 0.6 - 0.9 cm LVPW Diastolic Thickness 1.3 cm 0.6 - 1.0 / 0.6 - 0.9 cm LV Relative Wall Thickness 0.4 RV Internal Dim ED PLAX 3.6 cm LA Systolic Diameter LX 4.1 cm 3.0 - 4.0 / 2.7 - 3.8 cm LV Diastolic Volume MOD 4C 120.5 cm??? LV Systolic Volume MOD 4C 108.1 cm??? LV Ejection Fraction MOD 4C 10.3 % LV Diastolic Length 4C 8.9 cm LV Systolic Length 4C 8.5 cm LV Diastolic Volume MOD 2C 142.9 cm??? LV Systolic Volume MOD 2C 104.3 cm??? LV Ejection Fraction MOD 2C 27.1 % LV Diastolic Length 2C 9.4 cm LV Systolic Length 2C 8.7 cm LA Volume 84.8 cm??? 18 - 58 / 22 - 52 cm??? M-MODE Aortic Root Diameter MM 3.2 cm MV E Point Septal Separation 0.7 cm AV Cusp Separation MM 2.1 cm DOPPLER AV Peak Velocity 114.5 cm/s AV Peak Gradient 5.2 mmHg AI Peak Velocity 332.5 cm/s AI Peak Gradient 44.2 mmHg AI Pressure Half Time 857.0 ms MV Area PHT 5.3 cm??? Mitral E Point Velocity 104.7 cm/s Mitral A Point Velocity 71.8 cm/s Mitral E to A Ratio 1.5 MV Deceleration Time 142.5 ms TR Peak Velocity 10.8 cm/s TR Peak Gradient 0.0 mmHg FINDINGS Left Ventricle Left ventricular ejection fraction is estimated at 25-30 %. Left ventricular cavity mildly enlarged. Mild concentric left ventricular hypertrophy. Severely reduced global left ventricular systolic function. Right Ventricle Mild right ventricular dilatation. No TR unable to estimate the right ventricular systolic pressure. Right Atrium Normal right atrial size. Left Atrium Mildly increased left atrial diameter. Severely increased left atrial volume. Mildly increased left atrial area. Mitral Valve Structurally normal mitral valve. Trace mitral regurgitation. Aortic Valve Trileaflet aortic valve. No aortic stenosis. Mild aortic regurgitation. Tricuspid Valve Structurally normal tricuspid valve. No tricuspid stenosis, regurgitation or prolapse. Pulmonic Valve Structurally normal pulmonic valve. Trace pulmonic regurgitation. Pericardium Normal pericardium. No pericardial effusion. Aorta Normal size aortic root and proximal ascending aorta. CONCLUSIONS Mildly enlarged left ventricle with the global decrease in contractility. Mild mitral and tricuspid regurgitation. No clearcut pericardial effusion. No pulmonary hypertension of significance Previewed by: Dr. Wes Greene MD (Electronically Signed) Final Date: 09 June 2022 10:56
[2022-06-09] MEDS ORDERED: MIDAZOLAM 2 MG/2 ML VIAL IVP ONE (11:00)
[2022-06-09] MEDS ORDERED: fentaNYL (PF) 50 MCG/ML 2 ML AMP IVP ONE (11:00)
[2022-06-09] MEDS ORDERED: LIDOCAINE 1% INJ 10MG/ML (5 ML VIAL-PF) SQ ONE (11:03)
[2022-06-09] MEDS ORDERED: SODIUM CHLORIDE 0.9% 1,000 ML IV ONE (11:04)
[2022-06-09] MEDS ORDERED: VERAPAMIL SYRINGE (5 MG/10 ML) INTRAARTER ONE (11:05)
[2022-06-09] MEDS: HEPARIN SODIUM 1,000 UN/ML (10ML VL) IVP ONE ×2 (11:09→11:30)
[2022-06-09] MEDS ORDERED: IOPAMIDOL-370 125ML BTL INJ ONE (11:37)
[2022-06-09] MEDS ORDERED: RX INFO: IV CONTRAST WAS GIVEN 1 EACH MISC MISCELLANE PRN (11:41)
[2022-06-09] MEDS ORDERED: FUROSEMIDE 10 MG/ML 4 ML VIAL IV STA (11:42)
[2022-06-09 12:10] LABS: Glucose,Whole Blood 145 mg/dL (70-110)
[2022-06-09] MEDS ORDERED: lisinopriL 10 MG TAB PO STA (12:18)
--- NOTE | 2022-06-09 12:30 | P.PN ---
Subjective Progress Note Date: 06/09/22 HISTORY OF PRESENT ILLNESS: 06/08/2022 Patient presented with left pectoral pain. He is in severe pain but also has tenderness in the left pectoral region in the muscle and the ribs He feels a bit nauseous and sweaty He was chopping wood and the discomfort started after that His EKG shows sinus mechanism normal SD narrow QRS with abnormal ST segments with ST depression 0.5 mm in the inferior leads and a similar [address] depression in V4 through V6 and a 1 mm elevation in aVR. 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 Patient denies chest pain or pressure. He denies shortness of breath. Patient was scheduled to undergo L exiscan stress test today. However, the patient underwent echocardiogram revealing ejection fraction around 15%. This is new in comparison to his echocardiogram in 2019. Blood pressures are elevated this morning with a recent reading of 155/92. Telemetry reveals sinus bradycardia with a heart rate in the 40s to 50s. PHYSICAL EXAM: VITAL SIGNS: Reviewed. GENERAL: Well-developed in no acute distress. NECK: Supple. No JVD or thyromegaly LUNGS: Respirations even and unlabored. Lungs essentially clear to auscultation bilaterally. HEART: Regular rate and rhythm. S1 and S2 heard. EXTREMITIES: Normal range of motion. No clubbing or cyanosis. Peripheral pulses intact. No lower extremity edema ASSESSMENT: Chest discomfort, troponin negative 3 New cardiomyopathy, EF 15% History of cardiomyopathy in 2018 with ejection fraction 30-35%, with recovered LV function of 55-60% in 2019 Known nonobstructive mild to moderate disease in the LAD by coronary angiogram in 2018 Hypertension Bradycardia Acute kidney injury, resolved Nicotine dependence PLAN: Continue aspirin 81 mg daily Add atorvastatin 40 mg daily Resume home dose of lisinopril 10 mg daily No beta yen at this time secondary to bradycardia. Patient also refusing beta blockers. Patient to undergo cardiac catheterization today with Dr. Duenas Further recommendations pending patient's course Nurse practitioner note has been reviewed by physician. Signing provider agrees with the documented findings, assessment, and plan of care. Objective - Vital Signs Vital signs: Vital Signs Temp 97.6 F 06/09/22 08:00 Pulse 81 06/09/22 12:11 Resp 17 06/09/22 12:11 BP 166/105 06/09/22 12:11 Pulse Ox 98 06/09/22 12:11 FiO2 Intake & Output 06/08/22 06/09/22 06/09/22 18:59 06:59 18:59 Intake Total 600 50 Balance 600 50 Weight 83.915 kg Intake: IV 50 Oral 600 Other: Voiding Method Toilet Toilet Toilet # Voids 1 1 1 # Bowel Movements 2 - Labs CBC & Chem 7: 06/09/22 08:06 06/09/22 08:06 Labs: Abnormal Lab Results - Last 24 Hours (Table) 06/08/22 06/08/22 06/08/22 Range/Units 08:37 16:52 20:04 Chloride (98-107) mmol/L Carbon Dioxide (22-30) mmol/L Glucose (74-99) mg/dL POC Glucose (mg/dL) 177 H 171 H (70-110) mg/dL HDL Cholesterol 33.30 L (40.00-60.00) mg/dL 06/09/22 06/09/22 06/09/22 Range/Units 05:58 08:06 12:08 Chloride 109 H (98-107) mmol/L Carbon Dioxide 21 L (22-30) mmol/L Glucose 147 H (74-99) mg/dL POC Glucose (mg/dL) 166 H 145 H (70-110) mg/dL HDL Cholesterol (40.00-60.00) mg/dL
[2022-06-09 16:39] LABS: Glucose,Whole Blood 252 mg/dL (70-110)
--- NOTE | 2022-06-09 16:53 | P.PN ---
Subjective Progress Note Date: 06/09/22 This is a pleasant 56 years old male with past medical history of Coronary Artery Disease (CAD), Hyperlipidemia, Hypertension Patient presents because of chest pain started yesterday about 8-9/10 in severity but now is completely resolved as 0/10, his pain is in the left chest and radiate locally associated with some sweating, feathered like something sitting on his chest, little dyspnea yesterday but none today, no coughing. Patient has some nausea yesterday but no vomiting no abdominal pain or diarrhea. No more nausea today. No urinary complaints, no headache dizziness weakness or numbness He smokes half pack per day and he was counseled to quit and he agrees but he declines nicotine patch. No illicit drugs. Occasional alcohol Vitals are stable, blood pressure is low normal CBC is unremarkable. INR is within normal limits. Creatinine elevated 1.7 compared to baseline of 1.1. Serial troponin are negative 0.02 and 0.01 ProBNP is 895. EKG showing normal sinus rhythm at 78 with PVCs, QTC is 461, no significant ST-T changes. P pulmonale Chest x-ray: No acute process. , Aspirin 325 mg daily. Lipitor 80 mg. Also normal saline at 1 30 mL/h 06/09/2022 Patient is evaluated today status post cardiac catheterization. No acute events overnight. His chest pain is currently resolved. He had echocardiogram done showing EF of 25-30% with mild MR and TR. Patient remains hypertensive. Beta bl ockers are being held. Further recommendations from cardiology. Possible follow up cath to undergo PCI. Review of Systems Constitutional: Denied any fatigue denied any fever. Cardio vascular: denied any chest pain, palpitations Gastrointestinal: denied any nausea, vomiting, diarrhea Pulmonary: Denied any shortness of breath cough Neurologic denied any new focal deficits All inpatient medications were reviewed and appropriate changes in these medications as dictated in the interval history and assessment and plan. REVIEW OF SYSTEMS: CONSTITUTIONAL: No fever, no malaise, no fatigue. HEENT: No recent visual problems or hearing problems. Denied any sore throat. CARDIOVASCULAR: No chest pain, orthopnea, PND, no palpitations, no syncope. PULMONARY: No shortness of breath, no cough, no hemoptysis. GASTROINTESTINAL: No diarrhea, no nausea, no vomiting, no abdominal pain. NEUROLOGICAL: No headaches, no weakness, no numbness. HEMATOLOGICAL: Denies any bleeding or petechiae. GENITOURINARY: Denies any burning micturition, frequency, or urgency. MUSCULOSKELETAL/RHEUMATOLOGICAL: Denies any joint pain, swelling, or any muscle pain. ENDOCRINE: Denies any polyuria or polydipsia. The rest of the 14-point review of systems is negative. Assessment and Plan Assessment Chest pain, rule out ACS New cardiomyopathy EF of 15% Acute kidney injury on chronic kidney disease resolved Nicotine dependence Hypertension Hyperlipidemia History of coronary artery disease Chronic and ongoing nicotine use GI prophylaxis DVT prophylaxis Plan Patient is given IV lasix x 1 today Started on lisinopril Continue all other cardiac medications Further recommendations from cardiology forthcoming The impression and plan of care has been dictated by Nurse Zach Ambriz ctitioner as directed. Dr. Lacey MD I have performed a history and physical examination and medical decision making of this patient, discussed the same with the dictator, and agree with the dictat ors assessment and plan as written, documented as a scribe. Based on total visit time, I have performed more than 50% of this visit. Objective - Vital Signs Vital signs: Vital Signs Temp 98.1 F 06/09/22 15:26 Pulse 88 06/09/22 15:26 Resp 17 06/09/22 15:26 BP 157/93 06/09/22 15:26 Pulse Ox 99 06/09/22 15:26 FiO2 Intake & Output 06/08/22 06/09/22 06/09/22 18:59 06:59 18:59 Intake Total 600 50 Balance 600 50 Weight 83.915 kg Intake: IV 50 Oral 600 Other: Voiding Method Toilet Toilet Toilet # Voids 1 1 1 # Bowel Movements 2 - Labs CBC & Chem 7: 06/09/22 08:06 06/09/22 08:06 Labs: Abnormal Lab Results - Last 24 Hours (Table) 06/08/22 06/08/22 06/09/22 Range/Units 16:52 20:04 05:58 Chloride (98-107) mmol/L Carbon Dioxide (22-30) mmol/L Glucose (74-99) mg/dL POC Glucose (mg/dL) 177 H 171 H 166 H (70-110) mg/dL 06/09/22 06/09/22 06/09/22 Range/Units 08:06 12:08 16:37 Chloride 109 H (98-107) mmol/L Carbon Dioxide 21 L (22-30) mmol/L Glucose 147 H (74-99) mg/dL POC Glucose (mg/dL) 145 H 252 H (70-110) mg/dL Assessment and Plan Time with Patient: Less than 30
[2022-06-09 20:05] LABS: Glucose,Whole Blood 287 mg/dL (70-110)
--- NOTE | 2022-06-09 21:53 | CC ---
CARDIAC CATHETERIZATION REPORT INDICATION: A 56-year-old gentleman was admitted to hospital with chest pain and an echocardiogram revealed an ejection fraction of 15% to 20%, which has worsened from a test that was done in 2018. He has known mild nonobstructive CAD and nonischemic cardiomyopathy, but has not been following with me regularly in the office. Given the unexplained worsening of his LV function, I advised him to undergo cardiac catheterization for further evaluation. He had been explained of risks, benefits and alternatives, understood and accepted. PROCEDURE NOTE: After obtaining informed consent, left heart catheterization and coronary angiogram were performed via the right radial artery using standard Bang catheters. The patient tolerated the procedure well without any obvious immediate complications, received moderate conscious sedation. Total sedation time was 22 minutes. Right radial artery access was obtained using modified Seldinger technique. A 6-Hebrew sheath was placed. Catheters and wires were floated into the ascending aorta under fluoroscopic guidance. The patient tolerated the procedure well without any obvious immediate complications. He received 5 mg of verapamil and 4000 units of heparin per protocol. FINDINGS: HEMODYNAMICS: Left ventricular end-diastolic pressure is 24-26 mm. There is no significant gradient across the aortic valve. LEFT VENTRICULOGRAM: Left ventriculogram is not performed. ANGIOGRAPHIC DATA: Left main coronary artery: Left main coronary artery appears calcified, but is free of significant stenosis. Divides into left anterior descending coronary artery and circumflex coronary artery. LAD appears calcified, shows a focal moderate area of stenosis in the midportion. Circumflex coronary artery and the OM branch are free of significant stenosis, but there is a ramus intermedius that is a small caliber vessel shows 70% to 80% stenosis. Right coronary artery is a large dominant vessel. The PDA shows a 30% to 40% stenosis. CONCLUSIONS: 1. [id number] atherosclerotic plaque in the mid LAD. 2. Nonischemic cardiomyopathy. PLAN: I reviewed angiographic data with Dr. Washburn, the on-call weigher bulker. We will do an IFR and see if he truly has hemodynamically significant lesion in the LAD. If he does, we may still treat him with optimal medical therapy and consider revascularization only for significant symptoms that there is lot of ischemia as his cardiomyopathy is clearly unrelated to ischemic heart disease. MMODL / IJN: [id number] /
[2022-06-10 06:01] LABS: Glucose,Whole Blood 131 mg/dL (70-110)
[2022-06-10 08:48] LABS: Calcium 9.2 mg/dL (8.4-10.2); Potassium 4.7 mmol/L (3.5-5.1)
[2022-06-10] MEDS ORDERED: ATORVASTATIN 40 MG TAB PO SCH (09:00)
[2022-06-10] MEDS ORDERED: lisinopriL 10 MG TAB PO SCH (09:00)
[2022-06-10] MEDS ORDERED: FUROSEMIDE 40 MG TAB PO SCH (09:00)
[2022-06-10] MEDS: FAMOTIDINE 20 MG/2 ML VIAL IV SCH (10:11)
[2022-06-10] MEDS: ASPIRIN 81 MG PO SCH (10:11)
--- NOTE | 2022-06-10 11:29 | P.PN ---
Subjective Progress Note Date: 06/10/22 HISTORY OF PRESENT ILLNESS: 06/08/2022 Patient presented with left pectoral pain. He is in severe pain but also has tenderness in the left pectoral region in the muscle and the ribs He feels a bit nauseous and sweaty He was chopping wood and the discomfort started after that His EKG shows sinus mechanism normal [place] narrow QRS with abnormal ST segments with ST depression 0.5 mm in the inferior leads and a similar [address] depression in V4 through V6 and a 1 mm elevation in aVR. 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 Patient denies chest pain or pressure. He denies shortness of breath. Patient was scheduled to undergo L exiscan stress test today. However, the patient underwent echocardiogram revealing ejection fraction around 15%. This is new in comparison to his echocardiogram in 2019. Blood pressures are elevated this morning with a recent reading of 155/92. Telemetry reveals sinus bradycardia with a heart rate in the 40s to 50s. 06/10/2022 Patient is status post cardiac catheterization revealing moderate to severe atherosclerotic plaque in the mid LAD. INR of LAD was unable to be performed at that time. Medical management was recommended at this time. Patient examined this morning at the bedside. He denies any further episodes of chest pain or pressure. He denies shortness of breath. Vital signs are stable. Right radial cath site with pulse present. PHYSICAL EXAM: VITAL SIGNS: Reviewed. GENERAL: Well-developed in no acute distress. NECK: Supple. No JVD or thyromegaly LUNGS: Respirations even and unlabored. Lungs essentially clear to auscultation bilaterally. HEART: Regular rate and rhythm. S1 and S2 heard. EXTREMITIES: Normal range of motion. No clubbing or cyanosis. Peripheral pulses intact. No lower extremity edema ASSESSMENT: Chest discomfort, troponin negative 3 New cardiomyopathy, EF 15% History of cardiomyopathy in 2018 with ejection fraction 30-35%, with recovered LV function of 55-60% in 2019 Known nonobstructive mild to moderate disease in the LAD by coronary angiogram in 2018 Hypertension Bradycardia Acute kidney injury, resolved Nicotine dependence PLAN: Continue atorvastatin, aspirin, and lisinopril Decrease Lasix to 20 mg daily No beta yen at this time secondary to bradycardia. Patient also refusing beta blockers. Patient is stable for discharge home today. He is to follow up on an outpatient basis Nurse practitioner note has been reviewed by physician. Signing provider agrees with the documented findings, assessment, and plan of care. Objective - Vital Signs Vital signs: Vital Signs Temp 97.8 F 06/10/22 07:54 Pulse 91 06/10/22 08:30 Resp 19 06/10/22 07:54 BP 119/61 06/10/22 07:54 Pulse Ox 96 06/10/22 08:43 FiO2 Intake & Output 06/09/22 06/10/22 06/10/22 18:59 06:59 18:59 Intake Total 50 118 Balance 50 118 Intake: IV 50 Oral 118 Other: Voiding Method Toilet Toilet Toilet # Voids 1 1 - Labs CBC & Chem 7: 06/09/22 08:06 06/10/22 08:09 Labs: Abnormal Lab Results - Last 24 Hours (Table) 06/09/22 06/09/22 06/09/22 Range/Units 12:08 16:37 20:03 Creatinine (0.66-1.25) mg/dL Glucose (74-99) mg/dL POC Glucose (mg/dL) 145 H 252 H 287 H (70-110) mg/dL 06/10/22 06/10/22 Range/Units 05:59 08:09 Creatinine 1.38 H (0.66-1.25) mg/dL Glucose 186 H (74-99) mg/dL POC Glucose (mg/dL) 131 H (70-110) mg/dL
[2022-06-10 11:41] LABS: Glucose,Whole Blood 178 mg/dL (70-110)
[2022-06-10 12:08] VITALS: BP 128/69; PULSE 78; RESP 17; TEMP 98.1
--- NOTE | 2022-06-10 14:53 | CDI ---
Documentation Clarification Form Date: 06/10/2022 2:36:24 PM From: Gayle Garzon RN, CCDS Admit Date: 06/07/2022 8:38:00 PM Patient Name: Collin Enamorado Visit Number: [id number] Discharge Date: ATTENTION: The Clinical Documentation Specialists (CDI) and [facility] Coding Staff appreciate your assistance in clarifying documentation. Please respond to the clarification below the line at the bottom and electronically sign. The CDI & [facility] Coding staff will review the response and follow-up if needed. Please note: Queries are made part of the Legal Health Record. If you have any questions, please contact the author of this message via ITS. Dr. Jasmina Rahman Unspecified CKD is documented in the H/P and subsequent progress notes. Additional clarification regarding the stage of CKD is requested. History/Risk Factors: CAD, HTN, RI Hyperlipidemia Patients Historical: CR 1.1 Clinical Indicators: 56-year-old male present with complaints of chest pain. H/P and progress notes has documentation of chronic kidney disease. 06/07 BUN 22 CR 1.70 GFR44 06/08 BUN 18 CR 1.18 GFR 69 Treatment: .9NS 1,000 Bolus x1 06/07 .9NS @130 mL HR 06/07-06/09 Monitor I/O, Creatinine, Labs Please clarify the stage of the CKD, if known: [ ] CKD Stage 1 (GFR > 90) [x ] CKD Stage 2 (GFR 60-89) [ ] CKD Stage 3 (GFR 30-59) [ ] CKD Stage 3a (GFR 45-59) [ ] CKD Stage 3b (GFR 30-44) [ ] Other, please specify [ ] Unable to determine (Template last revised: April 2020) MTDD
[2022-06-11] MEDS ORDERED: FUROSEMIDE 20 MG TAB PO SCH (09:00)
--- NOTE | 2022-06-11 15:40 | P.DS ---
Providers Date of admission: 06/07/22 20:38 Attending physician: Brenden Diehl Consults: 06/07/22 20:13 Consult Physician Routine Consulting Provider: Ramon Boone Consult Reason/Comments: cp Do you want consulting provider notified?: Already Contacted Primary care physician: KEYA Lamb Hospital Course: Final Diagnosis Chest pain with negative troponin level New cardiomyopathy EF of 15% Known non-obstructive mild to moderate disease in the LAD by coronary angiogram in 2018 Bradycardia Diabetes Mellitus type 2 A1C of 8.2 Acute kidney injury resolved Chronic kidney disease stage 2 Nicotine dependence Hypertension Hyperlipidemia History of coronary artery disease Chronic and ongoing nicotine use counseled on cessation. Discharge Disposition Patient is stable for discharge he has been cleared by cardiology. Recommend close follow up on discharge. Beta yen is discontinued on discharge. Lasix has been decreased to 20 mg daily. Cardiology recommending office follow up for stress test. He has known LAD lesion. His A1C was found to be 8.2 and patient has been discharged on jardiance 10 mg daily. Recommend follow up with PCP regarding glycemic control. Patient is instructed to keep a log of blood sugars to bring to his follow up visit with PCP. Hospital Course This is a pleasant 56 years old male with past medical history of Coronary Artery Disease, Hyperlipidemia, Hypertension and chronic nicotine use 1/2 pack per day smoker. He has known LAD lesion on prior cardiac catheterization. He has history of cardiomyopathy with EF of 30-35% in 2018 which had improved to 55-69% in 2019. Patient presents because of chest pain started day before coming to the hospital about 8-9/10 in severity but now is completely resolved as 0/10, his pain is in the left chest and radiate locally associated with some sweating, and nausea. Initial work up reveals proBNP of 895, unremarkable CBC, he had mild COLLIN. EKG showing normal sinus rhythm heart rate 78, no st or t wave changes. Chest xray was negative. He did have elevated blood glucose and A1C found to be 8.2. Cardiology evaluated the patient. Echocardiogram showing EF of 25-30% with mild MR and TR. Patient remains hypertensive. Beta blockers are being held. Patient underwent cardiac catheterization and found to have moderate to severe atherosclerotic plaque in the mid LAD. iFR of LAD was unable to be performed at that time. Cardiology recommending medical management and outpatient follow up to undergo stress testing. Cardiology recommending no beta yen on discharge. Right radial site is stable and he has palpable pulse. He will be discharged. 06/11/2022 Patient is evaluated today status post cardiac catheterization. No intervention performed. He has known lesion to the LAD nonobstructive and cardiology to see the patient on discharge. Creatinine was 1.38 today. Blood glucose in the 170s. Lungs are clear S1 S2 auscultated. Chest pain has resolved at this time. Please see medication reconciliation for a list of current medication. Thank you for allowing us to participate in the care of this patient. The impression and plan of care has been dictated by Ivanna Gibbons, Nurse Practitioner as directed. Dr. Lacey MD I have performed a history and physical examination and medical decision making of this patient, discussed the same with the dictator, and agree with the dictators assessment and plan as written, documented as a scribe. Based on total visit time, I have performed more than 50% of this visit. Patient Condition at Discharge: Stable Plan - Discharge Summary Discharge Rx Participant: No New Discharge Prescriptions: New Aspirin 81 mg PO DAILY #30 tab Atorvastatin [Lipitor] 40 mg PO DAILY #30 tab Nitroglycerin Sl Tabs [Nitrostat] 0.4 mg SUBLINGUAL Q5M PRN #20 tab PRN Reason: Chest Pain lisinopriL [Zestril] 10 mg PO DAILY #30 tab Furosemide [Lasix] 20 mg PO DAILY #30 tab Empagliflozin [Jardiance] 10 mg PO DAILY #30 tab Continue lisinopriL [Zestril] 10 mg PO DAILY Discharge Medication List lisinopriL [Zestril] 10 mg PO DAILY 06/07/22 [History] Aspirin 81 mg PO DAILY #30 tab 06/10/22 [Rx] Atorvastatin [Lipitor] 40 mg PO DAILY #30 tab 06/10/22 [Rx] Empagliflozin [Jardiance] 10 mg PO DAILY #30 tab 06/10/22 [Rx] Furosemide [Lasix] 20 mg PO DAILY #30 tab 06/10/22 [Rx] Nitroglycerin Sl Tabs [Nitrostat] 0.4 mg SUBLINGUAL Q5M PRN #20 tab 06/10/22 [Rx] lisinopriL [Zestril] 10 mg PO DAILY #30 tab 06/10/22 [Rx] Follow up Appointment(s)/Referral(s): Ramon Boone MD [STAFF PHYSICIAN] - 1 Week (office will call you to schedule if you do not hear from them in 1-2 days give the office a call. ) Jarett Sanders NPC [Primary Care Provider] - 06/18/22 5:00 pm Ambulatory/Diagnostic Orders: Basic Metabolic Panel [LAB.AMB] Time Frame: 3 Days, Location: None Selected Patient Instructions/Handouts: *Surgery [facility] - After Heart Catheterization - Journal Clerk Instructions, Angina (DC), How to Check your Blood Sugar (DC) Activity/Diet/Wound Care/Special Instructions: Follow up with cardiology Monitor blood glucose and keep log for follow up. Patient needs glucometer on discharge Discharge Disposition: HOME SELF-CARE
== END 2022-06-10 14:35 | disposition home or self-care (01) | DRG 192 ==
LOC: EC 18:48 → 3SCARD 20:38
PROVIDERS: ADMIT Hospitalist; ATTEND Hospitalist
PROC: B2111ZZ Fluoroscopy of Multiple Coronary Arteries using Low Osmolar Contrast (ICD-10-PCS; principal; 2022-06-09 12:20)
PROC: 4A023N7 Measurement of Cardiac Sampling and Pressure, Left Heart, Percutaneous Approach (ICD-10-PCS; principal; 2022-06-09 12:20)
DX: R07.9 Chest pain, unspecified (principal); I25.10 Atherosclerotic heart disease of native coronary artery without angina pectoris; N17.9 Acute kidney failure, unspecified; I42.8 Other cardiomyopathies; E11.22 Type 2 diabetes mellitus with diabetic chronic kidney disease; E11.65 Type 2 diabetes mellitus with hyperglycemia; Z28.310 Unvaccinated for COVID-19; I12.9 Hypertensive chronic kidney disease with stage 1 through stage 4 chronic kidney disease, or unspecified chronic kidney disease; N18.2 Chronic kidney disease, stage 2 (mild); E78.5 Hyperlipidemia, unspecified; I25.2 Old myocardial infarction; I49.3 Ventricular premature depolarization; F17.210 Nicotine dependence, cigarettes, uncomplicated; Z71.6 Tobacco abuse counseling; Z79.899 Other long term (current) drug therapy; Z88.5 Allergy status to narcotic agent; Z82.49 Family history of ischemic heart disease and other diseases of the circulatory system
CPT/HCPCS: 36415; 71045; 80048; 80053; 80061; 83036; 83735; 83880; 84484; 85025; 85610; 85730; 93005; 93306; 93458; 94760; 96365; 96366; 96375; 96376; 99291

== ENCOUNTER 2023-08-23 17:27 | Inpatient (IN) | payer OTHER ==
[2023-08-23] MEDS ORDERED: MORPHINE SULFATE 4 MG/ML SYRINGE IV PRN (17:54)
[2023-08-23] MEDS ORDERED: NITROGLYCERIN SL TABS 0.4 MG TAB SUBLINGUAL PRN ×2 (17:54→21:00)
--- NOTE | 2023-08-23 18:00 | ED ---
Chest Pain HPI - General Chief Complaint: Chest Pain Stated Complaint: Chest pain Time Seen by Provider: 08/23/23 17:30 Source: patient, EMS, RN notes reviewed, old records reviewed Mode of arrival: EMS Limitations: no limitations - History of Present Illness Initial Comments: This is a 58-year-old male to the ER for evaluation today. Patient presents today for evaluation regards to chest pain persistent chest pain throughout ER stay. Severe chest pain on presentation arrival. Patient strong cardiac history with prior heart catheterization about 1 year ago, no stents. Patient states he does have a cardiomyopathy MD Complaint: chest pain -: days(s) Onset: during rest, during exertion Pain Location: substernal, left chest Pain Radiation: none Severity: severe Severity scale (1-10): 10 Quality: tightness Consistency: constant Improves With: nothing Anginal Symptoms: sense of impending doom Other Symptoms: palpitations Treatments Prior to Arrival: none - Related Data Home Medications Medication Instructions Recorded Confirmed No Known Home Medications 08/23/23 08/23/23 Allergies Allergy/AdvReac Type Severity Reaction Status Date / Time codeine AdvReac PINS AND Verified 08/23/23 17:54 NEEDLES FEELING metoprolol AdvReac Nausea & Verified 08/23/23 17:54 Vomiting Review of Systems ROS Statement: Those systems with pertinent positive or pertinent negative responses have been documented in the HPI. ROS Other: All systems not noted in ROS Statement are negative. EKG Findings - EKG Comments: EKG Findings:: EKG is sinus tachycardia 106 AL 147 QRS 169 QTc 427 patient does have non ST elevation in aVR T wave inversion throughout and a new left bundle branch block - EKG Results: EKG: interpreted by BAILEY Past Medical History Past Medical History: Coronary Artery Disease (CAD), Hyperlipidemia, Hypertension, Myocardial Infarction ([place]) Additional Past Medical History / Comment(s): Irregular heart beat, past reactions to Metoprolol that "caused HR to go to 8 BPM," reaction to Lisinopril in ER 06/07/22 lightheaded, chest pain; right groin hernia currently. Last Myocardial Infarction Date:: 01/2018 History of Any Multi-Drug Resistant Organisms: None Reported Past Surgical History: Heart Catheterization, Hernia Repair, Orthopedic Surgery, Tonsillectomy Additional Past Surgical History / Comment(s): BILAT KNEE SCOPES. VASECTOMY. RT ROTATOR CUFF REPAIR Past Anesthesia/Blood Transfusion Reactions: No Reported Reaction Past Psychological History: No Psychological Hx Reported Past Alcohol Use History: Occasional Past Drug Use History: Marijuana - Past Family History Mother Family Medical History: Deep Vein Thrombosis (DVT) Father Family Medical History: Myocardial Infarction ([place]) Additional Family Medical History / Comment(s): of [place] Sister(s) Family Medical History: Myocardial Infarction ([place]) Additional Family Medical History / Comment(s): of [place] at 52 years old. General Exam Limitations: no limitations General appearance: anxious, in distress Head exam: Present: atraumatic, normocephalic, normal inspection Eye exam: Present: normal appearance, PERRL, EOMI. Absent: scleral icterus, conjunctival injection, periorbital swelling ENT exam: Present: normal exam, mucous membranes moist Neck exam: Present: normal inspection. Absent: tenderness, meningismus, lymphadenopathy Respiratory exam: Present: normal lung sounds bilaterally. Absent: respiratory distress, wheezes, rales, rhonchi, stridor Cardiovascular Exam: Present: regular rate, normal rhythm, normal heart sounds. Absent: systolic murmur, diastolic murmur, rubs, gallop, clicks GI/Abdominal exam: Present: soft, normal bowel sounds. Absent: distended, tenderness, guarding, rebound, rigid Extremities exam: Present: normal inspection, full ROM, normal capillary refill. Absent: tenderness, pedal edema, joint swelling, calf tenderness Back exam: Present: normal inspection Neurological exam: Present: alert, oriented X3, CN II-XII intact Psychiatric exam: Present: normal affect, normal mood Skin exam: Present: warm, dry, intact, normal color. 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 sent in by a medical professional or institution (CAIO Mcclain, [employer]IC[employer], urgent care, hospital, or penitentiary...) When possible be specific @ -no Did you speak to anyone other than the patient for history (EMS, parent, family, police, friend...)? What history was obtained from this source @ -no Did you review nursing and triage notes (agree or disagree)? Why? @ -agree Are old charts reviewed (outside hosp., previous admission, EMS record, old EKG, old radiological studies, urgent care reports/EKG's, penitentiary records)? Report findings @ -yes Differential Diagnosis (chest pain, altered mental status, abdominal pain women, abdominal pain men, vaginal bleeding, weakness, fever, dyspnea, syncope, headache, dizziness, GI bleed, back pain, seizure, CVA, palpatations, mental health, musculoskeletal)? @ -prior EKG interpreted by me (3pts min.). @ -yes X-rays interpreted by me (1pt min.). @ -yes negative for acute disease CT interpreted by me (1pt min.). @ -no U/S interpreted by me (1pt. min.). @ -no What testing was considered but not performed or refused? (CT, X-rays, U/S, labs)? Why? @ -none What meds were considered but not given or refused? Why? @ -none Did you discuss the management of the patient with other professionals (professionals i.e. CAIO Mcclain, [employer], lab, RT, psych nurse, social service agency director, water softener service supervisor, teacher, senior administrative services officer, nurse case manager)? Give summary @ -no Was smoking cessation discussed for >3mins.? @ -no Was critical care preformed (if so, how long)? @ -yes31 Were there social determinants of health that impacted care today? How? (Homelessness, low income, unemployed, alcoholism, drug addiction, transportation, low edu. Level, literacy, decrease access to med. care, assisted, rehab)? @ -none Was there de-escalation of care discussed even if they declined (Discuss DNR or withdrawal of care, Hospice)? DNR status @ -no What co-morbidities impacted this encounter? (DM, HTN, Smoking, COPD, CAD, Cancer, CVA, ARF, Chemo, Hep., AIDS, mental health diagnosis, sleep apnea, morbid obesity)? @ -none Was patient admitted / discharged? Hospital course, mention meds given and route, prescriptions, significant lab abnormalities, going to OR and other pertinent info. @ - 58 male to the ER for evaluation today. Patient presents today for evaluation of chest pain found to have ST elevated CO. Patient will be admitted for cardiac catheterization Admitted Undiagnosed new problem with uncertain prognosis? @ -no Drug Therapy requiring intensive monitoring for toxicity (Heparin, Nitro, Insulin, Cardizem)? @ -no Were any procedures done? @ -no Diagnosis/symptom? @ -NonSTEMI,ACS Acute, or Chronic, or Acute on Chronic? @ -Acute Uncomplicated (without systemic symptoms) or Complicated (systemic symptoms)? @ -Complicated Side effects of treatment? @ -no Exacerbation, Progression, or Severe Exacerbation? @ -exacerbation Poses a threat to life or bodily function? How? (Chest pain, [place], CO, pneumonia, PE, COPD, DKA, ARF, appy, cholecystitis, CVA, Diverticulitis, Homicidal, Suicidal, threat to staff... and all critical care pts) @ -yes significant chest pain 09/01/23 00:49 Reevaluation #5: Differential Chest Pain: Stable Angina, Unstable Angina, STEMI, NSTEMI Aortic Dissection, Pneumothorax, Musculoskeletal, Esophageal Spasm GERD, Cholecystitis, Pancreatitis, Zoster, this is not meant to be an all-inclusive list. - Consultations Consultation #1: Cardiology seeing patient in the emergency department Consultation #2: Admitting who agreed to admit this patient Chest Pain MDM - MDM 58 male to the ER for evaluation today. Patient presents today for evaluation of chest pain found to have ST elevated CO. Patient will be admitted for cardiac catheterization Critical Care Time Critical Care Time: Yes Total Critical Care Time: 31 Disposition Clinical Impression: Chest pain, Unstable angina pectoris, Acute non-ST elevation myocardial infarction (NSTEMI) Disposition: ADMITTED IP TO THIS HOSP Condition: Critical Is patient prescribed a controlled substance at d/c from ED?: No Time of Disposition: 18:00
[2023-08-23] MEDS: NITROGLYCERIN SL TABS 0.4 MG TAB SUBLINGUAL STA (18:02)
[2023-08-23] MEDS: HYDROmorphone 1 MG/ML 1 ML SYRINGE IVP STA (18:03)
[2023-08-23] MEDS: HEPARIN SODIUM 1,000 UN/ML (10ML VL) IV ONE ×3 (18:08→19:45)
--- NOTE | 2023-08-23 18:11 | XR ---
EXAMINATION TYPE: XR chest 1V portable DATE OF EXAM: 08/23/2023 6:02 PM CLINICAL INDICATION:Male, 58 years old with history of Chest Pain; [facility] COMPARISON: Chest radiographs from 06/07/2022. TECHNIQUE: XR chest 1V portable Frontal view of the chest. FINDINGS: Lungs/Pleura: Bilateral hazy airspace opacities are identified. No pleural effusion or pneumothorax. Pulmonary vascularity: Unremarkable. Heart/mediastinum: Cardiomediastinal silhouette is enlarged and stable. Musculoskeletal: No acute osseous pathology. IMPRESSION: Bilateral airspace disease, may represent developing infectious/inflammatory process.
[2023-08-23 18:14] LABS: Basophils # (A) 0.1 k/uL (0-0.2); Basophils % (A) 1 %; Eosinophils # (A) 0.1 k/uL (0-0.7); Eosinophils % (A) 1 %; HCT 45.3 % (39.0-53.0); HGB 14.5 gm/dL (13.0-17.5); Lymphocytes # (A) 2.8 k/uL (1.0-4.8); Lymphocytes % (A) 35 %; MCH 29.6 pg (25.0-35.0); MCV 92.5 fL (80.0-100.0); Mean Platelet Volume 9.3; Monocytes # (A) 0.3 k/uL (0-1.0); Monocytes % (A) 4 %; Neutrophils # (A) 4.7 k/uL (1.3-7.7); Neutrophils % (A) 58 %; Platelet Count 216 k/uL (150-450); RDW 12.9 % (11.5-15.5); WBC 8.1 k/uL (3.8-10.6)
[2023-08-23] MEDS: ASPIRIN 81 MG PO STA (18:14)
[2023-08-23] MEDS ORDERED: VERAPAMIL 2.5 MG/ML 2 ML AMP ONE (18:17)
[2023-08-23] MEDS ORDERED: HEPARIN SODIUM 1,000 UN/ML (10ML VL) ONE ×2 (18:19→18:28)
[2023-08-23 18:23] LABS: Partial Thromboplastin Time 22.9 sec (22.0-30.0)
[2023-08-23 18:25] LABS: ALT 76 U/L (4-49); AST 109 U/L (17-59); African American GFR (CKD) 60 (>60 ml/min/1.73 sqM); Albumin 3.9 g/dL (3.5-5.0); Alkaline Phosphatase 108 U/L (38-126); Anion Gap 10 mmol/L; Blood Urea Nitrogen 21 mg/dL (9-20); Calcium 8.6 mg/dL (8.4-10.2); Carbon Dioxide 18 mmol/L (22-30); Chloride 109 mmol/L (98-107); Glucose 297 mg/dL (74-99); Lipase 103 U/L (23-300); Magnesium 1.9 mg/dL (1.6-2.3); Non-African American GFR(CKD) 52 (>60 ml/min/1.73 sqM); Potassium 4.5 mmol/L (3.5-5.1); Sodium 137 mmol/L (137-145); Total Bilirubin 0.7 mg/dL (0.2-1.3); Total Protein 6.3 g/dL (6.3-8.2)
[2023-08-23] MEDS ORDERED: fentaNYL (PF) 50 MCG/ML 2 ML AMP ONE (18:28)
[2023-08-23] MEDS: MIDAZOLAM 2 MG/2 ML VIAL IVP ONE (18:30)
[2023-08-23] MEDS: LIDOCAINE 1% INJ 10MG/ML (5 ML VIAL-PF) SQ ONE (18:31)
[2023-08-23 18:32] LABS: NT-Pro-B-Type Natriuretic Pept 2330 pg/mL
[2023-08-23] MEDS ORDERED: FLUMAZENIL 0.1 MG/ML 5 ML VIAL IVP ONE (18:36)
[2023-08-23] MEDS: FLUMAZENIL 0.1 MG/ML 5 ML VIAL IVP ONE (18:39)
[2023-08-23] MEDS: VERAPAMIL SYRINGE (5 MG/10 ML) INTRAARTER ONE (18:51)
[2023-08-23] MEDS: MORPHINE SULFATE 4 MG/ML SYRINGE IV STA (18:54)
[2023-08-23] MEDS: HEPARIN SOD,PORK IN 0.45% NACL 25,000 UNIT in 0.45% NACL 1 250ML.BAG IV SCH ×2 (18:55→23:59)
[2023-08-23] MEDS ORDERED: PHENYLEPHRINE-0.9% NACL SYG 1,000 MCG/10 ML SYRINGE ONE (19:11)
[2023-08-23] MEDS ORDERED: EPINEPHrine 10 ML SYRINGE (0.1 MG/ML) ONE (19:11)
[2023-08-23] MEDS ORDERED: ATROPINE SULFATE 0.1 MG/ML 10ML SYRINGE ONE (19:11)
[2023-08-23] MEDS ORDERED: SODIUM BICARB 8.4% 50 ML SYR (1 MEQ/ML) ONE (19:11)
[2023-08-23] MEDS ORDERED: TICAGRELOR 90 MG TAB ONE (19:28)
[2023-08-23] MEDS: NOREPINEPHRINE 4 MG in SODIUM CHLORIDE 0.9% 250 ML IV ONE (19:38)
--- NOTE | 2023-08-23 19:38 | P.CRDCN ---
History of Present Illness Consult date: 08/23/23 History of present illness: HISTORY OF PRESENTING ILLNESS 58-year-old male with past medical history of Severe cardiomyopathy EF 15 to 20%, smoker, previously offered ICD but denied. He had a heart catheterization in June 2023 at that time his mid LAD showed moderate to severe disease. This time he presented to the hospital because of substernal chest pressure which was 10/10 intensity. Radiating to bilateral shoulders. He was diaphoretic, difficulty in breathing and impending doom sensation. On admission his ECG showed sinus tachycardia with right bundle branch block. On comparing to his prior ECG, his bundle branch block is new. Bedside echocardiogram shows an EF of 10 to 15% with anteroseptal and apical wall hypokinesia. No obvious evidence of LV thrombus on bedside echocardiogram. No contrast was used. His pain did get better with nitro but reoccurred after few minutes. No prior history of strokes. No bleeding diathesis. Last hemoglobin 14, creatinine 1.3 from June 2022 Chest x-ray showed bilateral pulm congestion REVIEW OF SYSTEMS 14 point review of system is negative except what is mentioned above in HPI. PHYSICAL EXAMINATION Vital signs reviewed. Patient is in acute distress Neck: Brisk carotid upstroke, has elevated jugular venous distention. Lungs: Crackles audible bilateral lung encinas Heart: Regular rate and rhythm, S1-S2, , no murmur or rub. Abdomen: Soft nontender, Extremities: No edema, intact distal pulses. Neuro: Alert, oritented, no focal deficits. Detailed neuro exam was not performed. ASSESSMENT Substernal chest pain, unstable angina History of cardiomyopathy with EF of 10 to 15%, Acute systolic heart failure exacerbation Smoking history PLAN Due to ongoing chest pain not resolving to medical therapy, prior history of mid LAD disease, low LVEF, he will be taken emergently cardiac catheterization lab Further recommendations to follow Dustin Griffin MD, FACC, RPVI Thank you for allowing [facility] to participate in this patient's care. Feel free to reach out in case of any followup questions. Past Medical History Past Medical History: Coronary Artery Disease (CAD), Hyperlipidemia, Hypertension, [place]ocardial Infarction ([place]) Additional Past Medical History / Comment(s): Irregular heart beat, past reactions to Metoprolol that "caused HR to go to 8 BPM," reaction to Lisinopril in ER 06/07/22 lightheaded, chest pain; right groin hernia currently. Last Myocardial Infarction Date:: 01/2018 History of Any Multi-Drug Resistant Organisms: None Reported Past Surgical History: Heart Catheterization, Hernia Repair, Orthopedic Surgery, Tonsillectomy Additional Past Surgical History / Comment(s): BILAT KNEE SCOPES. VASECTOMY. RT ROTATOR CUFF REPAIR Past Anesthesia/Blood Transfusion Reactions: No Reported Reaction Past Psychological History: No Psychological Hx Reported Past Alcohol Use History: Occasional Past Drug Use History: Marijuana - Past Family History Mother Family Medical History: Deep Vein Thrombosis (DVT) Father Family Medical History: Myocardial Infarction ([place]) Additional Family Medical History / Comment(s): of [place] Sister(s) Family Medical History: Myocardial Infarction ([place]) Additional Family Medical History / Comment(s): of [place] at 52 years old. Medications and Allergies Home Medications Medication Instructions Recorded Confirmed Type No Known Home Medications 08/23/23 08/23/23 History Allergies Allergy/AdvReac Type Severity Reaction Status Date / Time codeine AdvReac PINS AND Verified 08/23/23 17:54 NEEDLES FEELING metoprolol AdvReac Nausea & Verified 08/23/23 17:54 Vomiting Physical Exam Vitals: Vital Signs Pulse Pulse Resp BP Pulse Ox 08/23/23 18:25 112 H 16 101/78 96 08/23/23 18:10 105 H 16 105/79 93 L 08/23/23 17:50 106 H 08/23/23 17:32 105 H 20 100/76 92 L Intake and Output 08/23/23 08/23/23 08/23/23 06:59 14:59 22:59 Other: Weight 81.647 kg Results 08/23/23 18:00 08/23/23 18:00 Cardiac Enzymes 08/23/23 08/23/23 Range/Units 18:00 18:00 AST 109 H (17-59) U/L Troponin I 0.071 H* (0.000-0.034) ng/mL Coagulation 08/23/23 Range/Units 18:00 PT 11.0 (10.0-12.5) sec APTT 22.9 (22.0-30.0) sec CBC 08/23/23 Range/Units 18:00 WBC 8.1 (3.8-10.6) k/uL RBC 4.90 (4.30-5.90) m/uL Hgb 14.5 (13.0-17.5) gm/dL Hct 45.3 (39.0-53.0) % Plt Count 216 (150-450) k/uL Comprehensive Metabolic Panel 08/23/23 Range/Units 18:00 Sodium 137 (137-145) mmol/L Potassium 4.5 (3.5-5.1) mmol/L Chloride 109 H (98-107) mmol/L Carbon Dioxide 18 L (22-30) mmol/L BUN 21 H (9-20) mg/dL Creatinine 1.47 H (0.66-1.25) mg/dL Glucose 297 H (74-99) mg/dL Calcium 8.6 (8.4-10.2) mg/dL AST 109 H (17-59) U/L ALT 76 H (4-49) U/L Alkaline Phosphatase 108 (38-126) U/L Total Protein 6.3 (6.3-8.2) g/dL Albumin 3.9 (3.5-5.0) g/dL Current Medications Generic Name Dose Route Start Last Admin Trade Name Freq PRN Reason Stop Dose Admin Aspirin 325 mg 08/24/23 09:00 Aspirin 325 Mg Tab PO DAILY [facility] Atorvastatin Calcium 80 mg 08/24/23 09:00 Atorvastatin 80 Mg Tab PO DAILY [facility] Sodium Chloride 1,000 mls @ 100 mls/hr 08/23/23 17:54 Saline 0.9% IV 08/24/23 03:53 .Q10H STA Heparin Sodium/Sodium Chloride 250 mls @ 9.798 mls/hr 08/23/23 18:00 08/23/23 18:55 25,000 unit/ Sodium Chloride IV Not Given .Q24H [facility] Protocol 12 UNITS/KG/HR Morphine Sulfate 4 mg 08/23/23 17:54 Morphine Sulfate 4 Mg/Ml Syringe IV Q4HR PRN Chest Pain Nitroglycerin 0.4 mg 08/23/23 17:54 Nitroglycerin Sl Tabs 0.4 Mg Tab SUBLINGUAL Q5M PRN Chest Pain Intake and Output 08/23/23 08/23/23 08/23/23 06:59 14:59 22:59 Other: Weight 81.647 kg Patient Weight 08/24/23 06:59 Weight 81.647 kg 08/23/23 18:00 08/23/23 18:00
[2023-08-23] MEDS: SODIUM CHLORIDE 0.9% 1,000 ML IV ONE ×2 (19:41→21:04)
[2023-08-23] MEDS: TICAGRELOR 90 MG TAB OG-TUBE ONE (19:43)
--- NOTE | 2023-08-23 19:49 | P.CARDCATH ---
Date of Procedure: 08/23/23 Description of Procedure: DIAGNOSTIC CORONARY ANGIOGRAPHY and LEFT HEART CATH REPORT PROCEDURES PERFORMED: Left heart catheterization Selective coronary angiography Moderate conscious sedation approx 30 mins Ultrasound assisted right radial access INDICATION: Unstable angina 58-year-old male presented to the hospital because of substernal chest pain. This pain got better with sublingual nitroglycerin and it reoccurred. His blood pressure is low normal. He has prior history of cardiomyopathy with EF of 15%. Prior history of mid LAD disease treated medically in the past. He is also a smoker. Because of ongoing substernal chest pain which was not resolving with conservative medical therapy along with high risk findings of congestive heart failure, he was scheduled for cardiac authorization procedure. CONSENT: I have explained the procedural steps of above-mentioned procedures in layman's terms to the patient. I discussed the risks (including but not limited to stroke, emergent vascular or cardiac surgery or ), benefits and alternative therapies for the above-mentioned procedure. I discussed the risks of sedation/analgesia and blood product administration (if indicated). The shiela alcala has indicated understanding and acceptance of these risks. Conscious Sedation: Patient's ECG, heart rate, blood pressure, pulse oximetry were monitored throughout the duration of procedure under my direct supervision. Patient received fentanyl and Dilaudid in the ER. Patient was administered 1 mg of Versed. After administering 1mg versed, patient got significantly drowsy and apneic. Patient was given 1 mg of flumazenil. Patient became agitated and his right radial sheath was pulled out. Anesthesiology team was called and to stabilize the patient. Patient got nasal airway and mask with supplemental oxygen which improved his oxygenation and ETCO2. Once patient was stabilized, cardiac authorization was attempted again. Sedation time was 30 mins. PROCEDURE: After explaining the risks, benefits and alternatives of the above mentioned procedures in detail to the patient, informed consent was obtained. Patient was taken to the catheterization lab, prepped and draped in usual sterile fashion using universal precuations. Right radial artery was identified using palpation. 1% lidocaine was infiltrated over right radial artery. 6 Turkish sheath was placed and secured in right radial artery using modified Seldinger technique. After administering 1mg versed, patient got significantly drowsy and apneic. Patient was given 1 mg of flumazenil. Patient became agitated and his right radial sheath was pulled out. Anesthesiology team was called and to stabilize the patient. Patient got nasal airway and mask with supplemental oxygen which improved his oxygenation and ETCO2. Once patient was stabilized, cardiac authorization was attempted again. Ultrasound was used to identify the radial artery. 1% lidocaine was infiltrated over the right radial artery. A 6-Turkish sheath was placed and secured in the right radial artery using modified Seldinger technique. The sheath was flushed and 5 mg verapamil was administered intra-arterially. J tipped wire was advanced under fluoroscopic guidance. Patient received 4000 Units of IV heparin in the ER Over the wire, 5 Turkish JL3.5 diagnostic catheter was advanced. The wire was removed and the catheter was flushed. The catheter was manipulated to selectively engage the left coronary ostium. Left artery angiogram was performed. A the JL catheter was exchanged for a JR4 catheter over the wire. With the wire in place the catheter was prolapsed across aortic valve to enter the LV cavity. Wire was removed catheter was flushed. LV pressures were obtained. Pullback was performed across the aortic valve. Catheter was manipulated to select engage the right coronary ostium. Right coronary angiogram was performed. Catheter was removed over the wire. Radial sheath was flushed. The wire was left in place. Angiographic images were reviewed in detail. ACT sample was obtained. Patient was prepped for Impella placement and left main angioplasty HEMODYNAMICS: Aortic Pressure: 70/40 mmHg. LV pressure: 70/30 mmHg. LVEDP 35 mmHg. There was no significant gradient across the aortic valve. SELECTIVE CORONARY ARTERIOGRAPHY: LEFT MAIN: The left main is 100% occluded in mid segment with BRIE 0 flow. RIGHT CORONARY ARTERY: Dominant vessel. The right coronary artery is a large caliber vessel. Proximal RCA has mild luminal irregularities. Mid RCA has 30 to 40% luminal narrowing. Distal RCA has mild luminal regularities. It bifurcates into PDA and PL branch. PDA has 40 to 50% diffuse sequential luminal narrowing. PL branches small and appears angiographically normal. There are faint right to left epicardial collaterals filling LAD retrogradely. IMPRESSION: 100% mid Left main stenosis with BRIE 0 flow Moderate RCA disease Cardiogenic shock Severely elevated LVEDP PLAN: Plan for Impella placement and left main intervention by Dr. Small Further recommendations to follow Performing Physician Dustin Griffin MD, FACC, RPVI Thank you for allowing [facility] to participate in this patient's care. Feel free to reach out in case of any followup questions.
[2023-08-23] MEDS: IOPAMIDOL-370 100ML BTL INJ ONE ×2 (20:08)
[2023-08-23] MEDS ORDERED: RX INFO: IV CONTRAST WAS GIVEN 1 EACH MISC MISCELLANE PRN (21:00)
[2023-08-23] MEDS ORDERED: ZOLPIDEM 5 MG TAB PO PRN (21:00)
[2023-08-23] MEDS ORDERED: MAG HYDROX/AL HYDROX/SIMETH 30 ML CUP PO PRN (21:00)
[2023-08-23] MEDS ORDERED: ATROPINE SULFATE 0.1 MG/ML 10ML SYRINGE IV PRN (21:00)
[2023-08-23 21:06] LABS: ABG Base Excess -6.6 mmol/L; ABG HCO3 21 mmol/L (21-25); ABG Oxygen Saturation 99.8 % (94-97); ABG PCO2 49 mmHg (35-45); ABG PH 7.24 (7.35-7.45); ABG PO2 358 mmHg (83-108); ABG TCO2 23 mmol/L (19-24); Allen Test Performed? Yes
--- NOTE | 2023-08-23 21:14 | P.CARDCATH ---
Date of Procedure: 08/23/23 Description of Procedure: PERCUTANEOUS TRANSLUMINAL CORONARY ANGIOPLASTY CLINICAL INFORMATION: The patient is a 58-year-old male with a known history of severe nonischemic cardiomyopathy, history of CAD who presented with symptoms of chest discomfort, new right bundle branch block and evidence of cardiogenic shock. He underwent cardiac catheterization by Dr. Griffin, he was found to have an acutely occluded left main. Recommendations were made regarding angioplasty and stenting. The patient was electively intubated because of hemodynamic instability and to secure airways. PROCEDURE: Using micropuncture technique a 6 Filipino sheath was introduced in the right femoral artery. The right femoral artery was dilated and subsequently a 14 Filipino Impella sheath was positioned. A 6 Filipino pigtail was introduced, subsequently the wire was exchanged and the Impella catheter was advanced, positioned appropriately with obtaining good parameters. Subsequently PCI was started. A 6 Filipino CLS 3.5 guiding catheter was introduced into the system from the right radial artery. After cannulating the left main, a 0.014 BMW J- wire was advanced across the lesion and positioned distally in the LAD. Following that a 2.5 x 12 mm trek balloon was advanced and inflated at 8 atmosphere. Subsequently a LeanWagon eye IVUS catheter was introduced and images were obtained and revealed severely calcified left main and proximal LAD, LAD measuring distally about 3.0 mm. Following that a 3.0 x 23 mm Xience russ point stent was deployed. It was dilated at 16 isamar. Repeat IVUS was performed and a 4.0 by 12 mm NC trek was advanced and inflation in the left main and proximal LAD was performed at 10 isamar. Subsequently a 2.5 x 12 mm NC trek balloon was advanced and 2 inflation at 8 isamar in the mid LAD was performed. IVUS of that segment was performed. Subsequently a 2.5 x 33 mm Xience russ point was advanced to the mid LAD and dilated at 14 isamar. Repeat IVUS was performed. Subsequently a 2.75 x 15 mm NC trek balloon was advanced and inflation in the distal stent was performed at a maximum of 10 isamar. 1 inflation in the LAD was performed as well at 10 isamar. Subsequently a 5.0 x 8 mm NC trek balloon was advanced in the left main and 1 inflation at 10 isamar was performed. After the last inflation, after appropriate wait, the balloon and the guidewire were withdrawn back into the guiding catheter. Images were obtained and repeated. Those images reveal stable successful stenting. At that point, the guiding catheter, the balloon, and guidewire were removed. The sheath was removed. Hemostasis was obtained with deployment of an TR band. There were no immediate complications. The patient was returned to the room in stable condition. Of note, the patient received 4000 units of heparin as well as ticagrelor. His ACT was followed. Of note that the patient had an episode of complete heart block requiring brief CPR and epinephrine. Because of the persistent complete heart block using micropuncture technique a 6 Filipino sheath was introduced in the right femoral vein and a temporary pacemaker was advanced positioned in the right ventricle. Pacing parameters were performed. The pacemaker was sutured in place. The peel-away sheath of the Impella balloon was removed and the Impella was secured in place. The patient was transferred to the ICU in stable condition. He has been evaluated to be transferred to [facility] for more advanced treatment. RESULTS: Successful stenting of the left main with reduction of stenosis from 100% to less than 5% with IVUS imaging and BRIE-3 flow. Successful stenting of the mid LAD with reduction of stenosis from 85% to less than 5% with IVUS imaging and BRIE-3 flow Placement of Impella CP catheter Placement of temporary pacemaker RECOMMENDATIONS: The patient has a lesion at the ostium of the left circumflex with BRIE-3 flow. The decision was made to treated medically in view of the overall condition and reevaluate depending on his progress. The patient will be transferred to [facility] for advanced care if possible. He will continue on aspirin and ticagrelor. The prognosis remains very guarded. The findings and recommendations were discussed with the family, they are in full understanding and agreement. Duration of sedation: 101 minutes
[2023-08-23] MEDS: SODIUM CHLORIDE 0.9% 1,000 ML IV STA (21:26)
[2023-08-23 21:42] LABS: Glucose,Whole Blood 368 mg/dL (70-110)
--- NOTE | 2023-08-23 21:59 | XR ---
EXAMINATION TYPE: XR chest 1V portable DATE OF EXAM: 08/23/2023 9:54 PM CLINICAL INDICATION:Male, 58 years old with history of ett placement, OG placement; [facility] COMPARISON: Chest radiographs from 08/23/2023. TECHNIQUE: XR chest 1V portable Frontal view of the chest. FINDINGS: Lungs/Pleura: There is no evidence of pleural effusion, focal consolidation, or pneumothorax. Pulmonary vascularity: Pulmonary vascular congestion. Heart/mediastinum: Cardiomediastinal silhouette is enlarged and stable. Cardiac conduction leads salguero sversing from inferior approach. Musculoskeletal: No acute osseous pathology. Other findings: None Lines/Tubes: Endotracheal tube with distal tip 2.8 cm above the julia. Nasogastric tube with its distal tip and side-port projecting under the diaphragm. Left ventricular assist device appears within appropriate position. IMPRESSION: * Appropriate placement of the nasogastric, endotracheal and left ventricular assist device. * Pulmonary vascular congestion and cardiomegaly.
--- NOTE | 2023-08-23 22:26 | ED ---
Medical Decision Making - Medical Decision Making Was called to the floor to place a left femoral arterial line for purposes of invasive monitoring related to patient's aortic balloon pump. Consent was emergent. The line was placed under ultrasound guidance. Placement without complication The site was cleaned with ChloraPrep, sterile dressing placed, ultrasound guidance was used, the artery was cannulated and the line was placed over a guidewire without complication. The line was sutured, no complications. - Lab Data Result diagrams: 08/23/23 18:00 08/23/23 18:00 Disposition Clinical Impression: Chest pain, ST elevation myocardial infarction (STEMI), Unstable angina pectoris Disposition: ADMITTED IP TO THIS [facility] Condition: Fair Procedures - Lee Protocol (Time Out) Patient Identification (2 identifiers required): Chart, Verbal, Name, Birthdate Patient/Legal Camp Manager has Confirmed: Identity, Procedure, Consent Site Marked: Not Applicable - Arterial Line No standard instances Consent Obtained: emergent situation Size (Gauge): 18 Technique Used: guide wire technique Post-Procedure: line sutured into place Patient Tolerated Procedure: well, no complications Complications: none Additional Comments: ultrasound guidance
[2023-08-23 23:16] LABS: African American GFR (CKD) 54 (>60 ml/min/1.73 sqM); Anion Gap 5 mmol/L; Blood Urea Nitrogen 24 mg/dL (9-20); Calcium 7.8 mg/dL (8.4-10.2); Carbon Dioxide 19 mmol/L (22-30); Chloride 110 mmol/L (98-107); Glucose 306 mg/dL (74-99); Non-African American GFR(CKD) 47 (>60 ml/min/1.73 sqM); Sodium 134 mmol/L (137-145)
[2023-08-23 23:30] LABS: Partial Thromboplastin Time 37.3 sec (22.0-30.0); Prothrombin Time 11.3 sec (10.0-12.5)
[2023-08-23 23:32] LABS: Basophils % (A) 0 %; Eosinophils % (A) 0 %; HCT 45.4 % (39.0-53.0); HGB 14.4 gm/dL (13.0-17.5); Lymphocytes # (A) 1.1 k/uL (1.0-4.8); Lymphocytes % (A) 8 %; MCH 29.3 pg (25.0-35.0); MCHC 31.7 g/dL (31.0-37.0); MCV 92.5 fL (80.0-100.0); Monocytes # (A) 0.5 k/uL (0-1.0); Monocytes % (A) 4 %; Neutrophils # (A) 11.5 k/uL (1.3-7.7); Neutrophils % (A) 87 %; Platelet Count 241 k/uL (150-450); RBC 4.91 m/uL (4.30-5.90); WBC 13.2 k/uL (3.8-10.6)
[2023-08-23] MEDS: propofoL 100 ML IV ONE (23:47)
[2023-08-23] MEDS: SODIUM CHLORIDE 0.9% 1,000 ML in EMPTY BAG 1 BAG IV SCH (23:48)
[2023-08-23 23:54] LABS: Potassium 7.1 mmol/L (3.5-5.1)
[2023-08-23 23:55] VITALS: BP 100/83
[2023-08-23] MEDS: SODIUM BICARB (1 MEQ/ML) 12.5 ML in DEXTROSE 5% IN WATER 500 ML IV SCH (23:59)
[2023-08-24 00:07] LABS: ABG Base Excess -6.2 mmol/L; ABG HCO3 20 mmol/L (21-25); ABG Oxygen Saturation 98.9 % (94-97); ABG PCO2 43 mmHg (35-45); ABG PH 7.28 (7.35-7.45); ABG TCO2 22 mmol/L (19-24); Allen Test Performed? Yes
[2023-08-24 00:11] LABS: ABG PO2 >420 mmHg (83-108)
[2023-08-24 00:29] VITALS: TEMP 97.9
[2023-08-24 00:33] LABS: Glucose,Whole Blood 270 mg/dL (70-110)
[2023-08-24 01:02] VITALS: PULSE 52; RESP 19
[2023-08-24] MEDS: INSULIN REGULAR 100 UNIT/ML VIAL (IV) IV ONE (01:05)
[2023-08-24] MEDS: SODIUM BICARB 8.4% 50 ML SYR (1 MEQ/ML) IV STA (01:05)
[2023-08-24] MEDS: CALCIUM GLUCONATE IN NACL 1 GM in SALINE 1 100ML.BAG IVPB ONE (01:06)
[2023-08-24] MEDS: NOREPINEPHRINE 4 MG in SODIUM CHLORIDE 0.9% 250 ML IV SCH (01:52)
[2023-08-24] MEDS ORDERED: ATORVASTATIN 80 MG TAB PO SCH (09:00)
[2023-08-24] MEDS ORDERED: ASPIRIN 325 MG TAB PO SCH (09:00)
[2023-08-24] MEDS ORDERED: TICAGRELOR 90 MG TAB PO SCH (09:00)
[2023-08-24] MEDS ORDERED: ASPIRIN 81 MG PO SCH (09:00)
--- NOTE | 2023-09-01 10:03 | P.DS ---
Providers Date of admission: 08/23/23 17:54 Expected date of discharge: 08/23/23 Attending physician: Brenden Diehl Consults: 08/23/23 17:54 Consult Physician Urgent Consulting Provider: Mitchell Small Consult Reason/Comments: stemi Do you want consulting provider notified?: Yes 08/23/23 21:00 Consult Physician Routine Consulting Provider: [facility] Consult Reason/Comments: Post Interventional Patient Do you want consulting provider notified?: Already Contacted Primary care physician: [facility] Course: Patient was not seen and evaluated by admitting and attending services this admission. Patient was evaluated by emergency room physicians along with cardiology services. Please use this as an H&P and discharge summary According to ER documentation patient was brought in by EMS with chest pain that was persistent with severe chest pain with a known history of cardiomyopathy and previous heart catheterization 1 year prior. Patient with history of coronary artery disease, hyperlipidemia, hypertension, myocardial infarction. Patient was noted to have a STEMI and code STEMI was activated and patient was evaluated by cardiology recommending cardiac catheterization with initial troponin being 0.071 and BNP being 2330 with liver enzymes that were mildly elevated and an elevated lactic acid of 2.6. Patient was brought to the Operational Assistant and noted to have 100% mid left main stenosis with moderate RCA disease and cardiogenic shock with plans for Impella placement with Dr. Small. Patient was intubated at this time and noted to have a lesion at the ostium of the left circumflex and later determined the need for transfer to tertiary treatment center and patient is being transferred to [facility] for advanced care. Cardiology spoke with dairy farm worker from [facility] and was accepted by Dr. Ronny Small. Again, patient was not evaluated by admitting and attending services on this visit. Please refer to ER documentation along with cardiology documentation for further HPI. Assessment: Chest pain, STEMI, status post cardiac catheterization showing 100% stenosis of the left main along with moderate RCA disease Elevated troponin, secondary to above Acute kidney injury, likely secondary to above History of coronary artery disease Hyperlipidemia history Hypertension Previous myocardial infarction Current nicotine dependence Daily Occasional alcohol use Marijuana use GI prophylaxis DVT prophylaxis Full code The impression and plan of care has been dictated by Marilyn Canela, Nurse Practitioner as directed. Dr. Fazal MD I have performed a history and examination and MDM of this patient, discussed the same with the dictator, and agree with the dictator's assessment and plan as written ,documented as a scribe. Based on total visit time, I have performed more than 50% of the visit. Patient Condition at Discharge: Critical Plan - Discharge Summary New Discharge Prescriptions: No Action No Known Home Medications Discharge Medication List No Known Home Medications 08/23/23 [History] Follow up Appointment(s)/Referral(s): Jarett Sanders [facility] [REFERRING] - 1-2 days Discharge Disposition: TRANSFER TO SHORT TERM HOSP
--- NOTE | 2023-09-01 10:03 | P.HPIM ---
History of Present Illness H&P Date: 08/23/23 Patient was not seen and evaluated by admitting and attending services this admission. Patient was evaluated by emergency room physicians along with cardiology services. Please use this as an H&P and discharge summary According to ER documentation patient was brought in by EMS with chest pain that was persistent with severe chest pain with a known history of cardiomyopathy and previous heart catheterization 1 year prior. Patient with history of coronary artery disease, hyperlipidemia, hypertension, myocardial infarction. Patient was noted to have a STEMI and code STEMI was activated and patient was evaluated by cardiology recommending cardiac catheterization with initial troponin being 0.071 and BNP being 2330 with liver enzymes that were mildly elevated and an elevated lactic acid of 2.6. Patient was brought to the [employer] and noted to have 100% mid left main stenosis with moderate RCA disease and cardiogenic shock with plans for Impella placement with Dr. Small. Patient was intubated at this time and noted to have a lesion at the ostium of the left circumflex and later determined the need for transfer to tertiary [facility] and patient is being transferred to [facility] for advanced care. Cardiology spoke with quality control analyst from [facility] and was accepted by Dr. Ronny Small. Again, patient was not evaluated by admitting and attending services on this visit. Please refer to ER documentation along with cardiology documentation for further HPI. Assessment: Chest pain, STEMI, status post cardiac catheterization showing 100% stenosis of the left main along with moderate RCA disease Elevated troponin, secondary to above Acute kidney injury, likely secondary to above History of coronary artery disease Hyperlipidemia history Hypertension Previous myocardial infarction Current nicotine dependence Daily Occasional alcohol use Marijuana use GI prophylaxis DVT prophylaxis Full code The impression and plan of care has been dictated by Marilyn Canela, Nurse Practitioner as directed. Dr. Fazal MD I have performed a history and examination and MDM of this patient, discussed the same with the dictator, and agree with the dictator's assessment and plan as written ,documented as a scribe. Based on total visit time, I have performed more than 50% of the visit. Past Medical History Past Medical History: Coronary Artery Disease (CAD), Hyperlipidemia, Hypertension, Myocardial Infarction ([place]) Additional Past Medical History / Comment(s): Irregular heart beat, past reactions to Metoprolol that "caused HR to go to 8 BPM," reaction to Lisinopril in ER 06/07/22 lightheaded, chest pain; right groin hernia currently. Last Myocardial Infarction Date:: 01/2018 History of Any Multi-Drug Resistant Organisms: None Reported Past Surgical History: Heart Catheterization, Hernia Repair, Orthopedic Surgery, Tonsillectomy Additional Past Surgical History / Comment(s): BILAT KNEE SCOPES. VASECTOMY. RT ROTATOR CUFF REPAIR Past Anesthesia/Blood Transfusion Reactions: No Reported Reaction Past Psychological History: No Psychological Hx Reported Past Alcohol Use History: Occasional Past Drug Use History: Marijuana - Past Family History Mother Family Medical History: Deep Vein Thrombosis (DVT) Father Family Medical History: Myocardial Infarction ([place]) Additional Family Medical History / Comment(s): of [place] Sister(s) Family Medical History: Myocardial Infarction ([place]) Additional Family Medical History / Comment(s): of [place] at 52 years old. Medications and Allergies Home Medications Medication Instructions Recorded Confirmed Type No Known Home Medications 08/23/23 08/23/23 History Allergies Allergy/AdvReac Type Severity Reaction Status Date / Time codeine AdvReac PINS AND Verified 08/23/23 17:54 NEEDLES FEELING metoprolol AdvReac Nausea & Verified 08/23/23 17:54 Vomiting Results CBC & Chem 7: 08/23/23 22:50 08/23/23 22:50
== END 2023-08-24 02:12 | disposition short-term general hospital (02) | DRG 178 ==
LOC: EC 17:27 → 2SICU 17:54
PROVIDERS: ADMIT Hospitalist; ATTEND Hospitalist
PROC: B2111ZZ Fluoroscopy of Multiple Coronary Arteries using Low Osmolar Contrast (ICD-10-PCS; 2023-08-23)
PROC: 5A1223Z Performance of Cardiac Pacing, Continuous (ICD-10-PCS; 2023-08-23)
PROC: 5A12012 Performance of Cardiac Output, Single, Manual (ICD-10-PCS; 2023-08-23)
PROC: 3E033XZ Introduction of Vasopressor into Peripheral Vein, Percutaneous Approach (ICD-10-PCS; 2023-08-23)
PROC: B241ZZ3 Ultrasonography of Multiple Coronary Arteries, Intravascular (ICD-10-PCS; 2023-08-23)
PROC: 02HA3RZ Insertion of Short-term External Heart Assist System into Heart, Percutaneous Approach (ICD-10-PCS; principal; 2023-08-23 18:15)
PROC: 5A0221D Assistance with Cardiac Output using Impeller Pump, Continuous (ICD-10-PCS; 2023-08-23 18:15)
PROC: 027105Z Dilation of Coronary Artery, Two Arteries with Two Drug-eluting Intraluminal Devices, Open Approach (ICD-10-PCS; 2023-08-23 18:15)
PROC: 04HY32Z Insertion of Monitoring Device into Lower Artery, Percutaneous Approach (ICD-10-PCS; 2023-08-23 18:15)
PROC: 4A133B1 Monitoring of Arterial Pressure, Peripheral, Percutaneous Approach (ICD-10-PCS; 2023-08-23 18:15)
PROC: 4A133J1 Monitoring of Arterial Pulse, Peripheral, Percutaneous Approach (ICD-10-PCS; 2023-08-23 18:15)
PROC: 4A023N7 Measurement of Cardiac Sampling and Pressure, Left Heart, Percutaneous Approach (ICD-10-PCS; 2023-08-23 18:15)
DX: I21.01 ST elevation (STEMI) myocardial infarction involving left main coronary artery (principal); R57.0 Cardiogenic shock; I50.23 Acute on chronic systolic (congestive) heart failure; I44.2 Atrioventricular block, complete; I42.8 Other cardiomyopathies; N17.9 Acute kidney failure, unspecified; I11.0 Hypertensive heart disease with heart failure; I25.10 Atherosclerotic heart disease of native coronary artery without angina pectoris; F17.210 Nicotine dependence, cigarettes, uncomplicated; E78.5 Hyperlipidemia, unspecified; I25.2 Old myocardial infarction; Z88.8 Allergy status to other drugs, medicaments and biological substances; Z82.49 Family history of ischemic heart disease and other diseases of the circulatory system
CPT/HCPCS: 33210; 33990; 36415; 71045; 76937; 80048; 80053; 82805; 83605; 83690; 83735; 83880; 84484; 85025; 85384; 85610; 85730; 92950; 92978; 93005; 93308; 93458; 94002; 94003; 96374; 96375; 99291